=== PATIENT | female | born 1960 | race Caucasian/White ===

== ENCOUNTER 2021-12-12 02:54 | Inpatient (IN) ==
[2021-12-12] MEDS ORDERED: ATARAX TAB 25 MG PO ONE ×2 (03:51→04:13)
--- NOTE | 2021-12-12 03:51 | DR.EXTPAIN ---
HPI Time seen Time Seen by Provider: 12/12/21 03:34 Complaint/Symptoms Chief Complaint Doctor Comments: LESIONS ON TONGUE AND LIPS AND FACE FOR ABOUT 5 HOURS. 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 ROS Review of Systems Constitutional: No Symptoms Reported Eyes: No Symptoms Reported ENTM: No Symptoms Reported and Mouth Pain Respiratoy: No Symptoms Reported Cardiovascular: No Symptoms Reported Gastrointestinal/Abdominal: No Symptoms Reported Genitourinary: No Symptoms Reported Neurological: No Symptoms Reported Musculoskeletal: No Symptoms Reported Integumentary: No Symptoms Reported Hematologic/Lymphatic: No Symptoms Reported Endocrine: No Symptoms Reported Psychiatric: No Symptoms Reported All Other Systems: Reviewed and Negative PE Vital Signs Vitals: Temperature 97.6 F Pulse Rate 69 Respiratory Rate 18 Blood Pressure 181/92 O2 Sat by Pulse Oximetry 97 General Limitations: No Limitations General Appearance: Alert and In No Apparent Distress Head Head Exam: Normal Inspection Eyes Eye exam: Normal Appearance ENT ENT Exam: Normal Exam and Other (RASH ON TONGUE AND LIPS AND R SIDE OFACE AND NECK. APPEARED PETECHIA IN NATURE.) Neck Neck Exam: Normal Inspection Chest Chest Inspection: Normal Inspection Respiratory Respiratory Exam: Normal Lung Sounds Bilat Cardiovascular Cardiovascular Exam: Regular Rate and Normal Rhythm Abdominal Exam Abdominal Exam: Normal Inspection, Normal Bowel Sounds and Soft Extremities Extremities Exam: Normal Inspection Back Back Exam: Normal Inspection Neurological Neurological Exam: Alert, Oriented X3 and CN II-XII Intact Psychiatric Psychiatric Exam: Normal Affect and Normal Mood Skin Skin Exam: Warm, Dry, Intact and Normal Color MDM Differential Diagnosis Differential Diagnosis: Other (CONTACT DERMATITIS. PETECHIAL RASH ON LIPS AND TONGUE.) COURSE Treatment Treatment: THIS PATIENT REMAINED STABLE DURING THE ER EVALUATION. WAS FOUND TO HAVE PLATELETS OF ONE ONLAB EVALUATION. WAS ADVISED THAT SHE NEEDED TO HAVE PLATELET TRANSFUSIONS AND NEEDED TO BE PUT INTO HOSPITAL TO AWAIT ARRIVAL OF PLATELETS. SPOKE TO DR CUMMINGS AT 0630 AM AND HE WILL ACCEPT THE PATIENT TO OBSEVATION [facility] FURTHER WORKUP AND TREATMENT OF THROMBOCYTOPENIA. ROR Labs Reviewed Laboratory Results Reviewed?: Yes (PLATELETS OF 1x10^3/uL) Result Diagrams: 12/18/21 05:05 12/18/21 05:05 Laboratory: WBC 5.2 X10^3/uL (3.6-10.0) 12/12/21 04:12 RBC 4.68 X10^6/uL (3.5-5.4) 12/12/21 04:12 Hgb 12.8 g/dL (12.0-16.0) 12/12/21 04:12 Hct 37.8 % (36.0-47.0) 12/12/21 04:12 MCV 80.9 fL (80.0-100.0) 12/12/21 04:12 MCH 27.4 pg (27.0-34.0) 12/12/21 04:12 MCHC 33.9 g/dL (33.0-35.0) 12/12/21 04:12 RDW 13.1 % (11.6-16.5) 12/12/21 04:12 Plt Count 1 X10^3/uL (150.0-450.0) L* 12/12/21 04:12 MPV 12.9 fL (7.4-11.0) H 12/12/21 04:12 Neut % (Auto) 56.7 % (42.0-75.0) 12/12/21 04:12 Lymph % (Auto) 32.9 % (21.0-51.0) 12/12/21 04:12 [place] % (Auto) 6.1 % (0.0-13.0) 12/12/21 04:12 Eos % (Auto) 3.6 % (0.9-2.9) H 12/12/21 04:12 Baso % (Auto) 0.7 % (0.2-1.0) 12/12/21 04:12 Neut # (Auto) 2.9 x10^3/uL (2.2-4.8) 12/12/21 04:12 Lymph # (Auto) 1.7 X10^3/uL (1.3-2.9) 12/12/21 04:12 [place] # (Auto) 0.3 x10^3/uL (0.3-0.8) 12/12/21 04:12 Eos # (Auto) 0.2 x10^3/uL (0.0-0.2) 12/12/21 04:12 Baso # (Auto) 0.0 X10^3/uL (0.0-0.1) 12/12/21 04:12 Absolute Nucleated RBC 0.1 /100WBC 12/12/21 04:12 Smear Path Review See note 12/12/21 04:12 ESR 8 MM/HOUR (0-20) 12/12/21 04:12 PT 12.7 SECONDS (11.8-14.3) 12/12/21 04:12 INR Target Range - 12/12/21 04:12 INR 1.00 (0.8-1.3) 12/12/21 04:12 APTT 28.5 SECONDS (22.9-36.5) 12/12/21 04:12 PTT Comment - 12/12/21 04:12 D-Dimer 0.74 ug/ml (0.0-0.57) H* 12/12/21 04:12 Sodium 141 mmol/L (136-145) 12/12/21 04:12 Corrected Sodium 142 mmol/L (136-145) 12/12/21 04:12 Potassium 3.7 mmol/L (3.5-5.1) 12/12/21 04:12 Chloride 103 mmol/L (98-107) 12/12/21 04:12 Carbon Dioxide 27.7 mmol/L (21-32) 12/12/21 04:12 BUN 12 mg/dL (7-18) 12/12/21 04:12 Creatinine 0.67 mg/dL (0.55-1.02) 12/12/21 04:12 Est GFR (MDRD) Af Amer > 60 (>60) 12/12/21 04:12 Est GFR (MDRD) Non-Af > 60 (>60) 12/12/21 04:12 Glucose 131 mg/dL (65-99) H 12/12/21 04:12 Calcium 8.7 mg/dL (8.5-10.1) 12/12/21 04:12 Corrected Calcium TNP 12/12/21 04:12 Total Bilirubin 0.40 mg/dL (0.2-1.0) 12/12/21 04:12 AST 29 Units/L (15-37) 12/12/21 04:12 ALT 40 Units/L (12-78) 12/12/21 04:12 Alkaline Phosphatase 79 Units/L (46-116) 12/12/21 04:12 C-Reactive Protein 1.60 mg/L (0-3.0) 12/12/21 04:12 B-Natriuretic Peptide 61.3 pg/mL (0-79) 12/12/21 04:12 Total Protein 7.7 g/dL (6.4-8.2) 12/12/21 04:12 Albumin 4.2 g/dL (3.4-5.0) 12/12/21 04:12 Globulin 3.5 g/dL (2.5-4.5) 12/12/21 04:12 Albumin/Globulin Ratio 1.2 Ratio (1.1-2.1) 12/12/21 04:12 Specimen Type Clean catch urine 12/12/21 04:00 Urine Color Red (YELLOW) 12/12/21 04:00 Urine Appearance Cloudy (CLEAR) 12/12/21 04:00 Urine pH Cancelled 12/12/21 04:00 Ur Specific [place] Cancelled 12/12/21 04:00 Urine Protein Cancelled 12/12/21 04:00 Urine Glucose (UA) Cancelled 12/12/21 04:00 Urine Ketones Cancelled 12/12/21 04:00 Urine Occult Blood Cancelled 12/12/21 04:00 Urine Nitrite Cancelled 12/12/21 04:00 Urine Bilirubin Cancelled 12/12/21 04:00 Urine Urobilinogen Cancelled 12/12/21 04:00 Ur Leukocyte Esterase Cancelled 12/12/21 04:00 Urine RBC Tntc /HPF (0-3) A 12/12/21 04:00 Urine WBC None seen /HPF (0-5) 12/12/21 04:00 Ur Squamous Epith Cells Negative /HPF (NEGATIVE) 12/12/21 04:00 Urine Bacteria Negative /HPF (NEGATIVE) 12/12/21 04:00 Ur Culture Indicated? No/not indicated 12/12/21 04:00 SARS CoV-2 RNA Rapid BRITTANY Positive (NEGATIVE) A 12/12/21 06:07 Blood Type B POSITIVE 12/12/21 06:10 Opioid Opioid Risk Tool Total: 0 Total Score Risk Category: Low Risk Copyright: Zane BOWERS predicting aberrant behaviors Diagnosis Discharge Problem: Thrombocytopenia Instructions Instructions: COVID-19 Frequently Asked Questions Prone Position Therapy Type 2 Diabetes Mellitus, Self-Care, Adult 10 Things You Can Do to Manage Your COVID-19 Symptoms at Home - [facility] (05/07/2020) Hypertension, Adult, [id number] Essential Thrombocythemia Thrombocytopenia, [id number] Forms: Precautions for COVID19 [facility] Social Distancing
[2021-12-12 04:22] LABS: APPEARANCE,URINE CLOUDY (CLEAR); BACTERIA,URINE NEGATIVE /HPF (NEGATIVE); COLOR,URINE RED (YELLOW); RBC,URINE TNTC /HPF (0-3); SQUAMOUS EPITHELIAL CELL,UR NEGATIVE /HPF (NEGATIVE)
[2021-12-12 04:26] LABS: EOSINOPHILS # (AUTO) 0.2 x10^3/uL (0.0-0.2); MONOCYTES # (AUTO) 0.3 x10^3/uL (0.3-0.8)
[2021-12-12 04:31] LABS: LYMPHOCYTES # (AUTO) 1.7 X10^3/uL (1.3-2.9)
[2021-12-12 04:34] LABS: ALANINE AMINOTRANSFERASE 40 Units/L (12-78); ALBUMIN 4.2 g/dL (3.4-5.0); ALKALINE PHOSPHATASE 79 Units/L (46-116); ASPARTATE AMINO TRANSFERASE 29 Units/L (15-37); BLOOD UREA NITROGEN 12 mg/dL (7-18); CALCIUM 8.7 mg/dL (8.5-10.1); CARBON DIOXIDE 27.7 mmol/L (21-32); CHLORIDE 103 mmol/L (98-107); COR NA(FOR HYPERGLY) 142 mmol/L (136-145); CREATININE 0.67 mg/dL (0.55-1.02); SODIUM 141 mmol/L (136-145); TOTAL PROTEIN 7.7 g/dL (6.4-8.2); eGFR NON BLACK RACES > 60 (>60)
[2021-12-12 04:49] LABS: NEUTROPHILS # (AUTO) 2.9 x10^3/uL (2.2-4.8); WHITE BLOOD COUNT 5.2 X10^3/uL (3.6-10.0)
[2021-12-12 04:52] LABS: BASOPHILS % (AUTO) 0.7 % (0.2-1.0); EOSINOPHILS % (AUTO) 3.6 % (0.9-2.9); HEMATOCRIT 37.8 % (36.0-47.0); HEMOGLOBIN 12.8 g/dL (12.0-16.0); LYMPHOCYTES % (AUTO) 32.9 % (21.0-51.0); MEAN CORPUSCULAR HEMOGLOBIN 27.4 pg (27.0-34.0); MEAN CORPUSCULAR HGB CONC 33.9 g/dL (33.0-35.0); MEAN CORPUSCULAR VOLUME 80.9 fL (80.0-100.0); MEAN PLATELET VOLUME 12.9 fL (7.4-11.0); MONOCYTES % (AUTO) 6.1 % (0.0-13.0); NEUTROPHILS % (AUTO) 56.7 % (42.0-75.0); RED BLOOD COUNT 4.68 X10^6/uL (3.5-5.4); RED CELL DISTRIBUTION WIDTH 13.1 % (11.6-16.5)
[2021-12-12 04:58] VITALS: BMI 29.0
--- NOTE | 2021-12-12 05:14 | CT ---
PROCEDURE: CT Abdomen and Pelvis without Contrast .HISTORY: Hematuria and dysuria. Evaluate for urinary tract stones.TECHNIQUE: Axial images were performed through the abdomen and pelvis without the administration of IV contrast with multiplanar reformations . Oral contrast was not administered . Dose reduction techniques including Automated Exposure Control (AEC) and adjustment of mA and kV were utilized .COMPARISON: None .TECHNICAL QUALITY: Satisfactory .FINDINGS:Some mild patchy consolidation right lower lobe could be related to COVID-19 pneumonia.Liver, spleen, adrenals, and pancreas show no significant abnormality.Kidneys show no urinary tract stones or obstructive uropathy.Normal biliary tract.No ascites or pneumoperitoneum.Normal aorta.No lymphadenopathy.No bowel obstruction or inflammation and normal appendix.Pelvis shows no masses or free fluid with previous hysterectomy. Normal urinary bladder.No acute bony abnormality.IMPRESSION:1. No urinary tract stones or obstructive uropathy.2. No other significant abnormality involving abdomen or pelvis.3. Possible COVID pneumonia right lung base.Electronically signed by: Dave Alonso (Dec 12, 2021 05:13:08)
[2021-12-12] MEDS: SOLU-Medrol 40 MG VIAL IVP SCH ×3 (11:00→21:33)
[2021-12-12] MEDS: LEVAQUIN PREMIX IV 500 MG 500 MG/100 ML BAG IV SCH (11:00)
[2021-12-12] MEDS ORDERED: PHARMACY CONSULT - IVERMECTIN XX SCH (11:00)
[2021-12-12] MEDS ORDERED: BROVANA IN SCH (11:00)
--- NOTE | 2021-12-12 11:02 | DR.H&P ---
H&P - History & Physical for Day of: H&P Date: 12/12/21 - Chief Complaint Chief Complaint: SORES TO MOUTH AND TONGUE, RASH TO LIPS/FACE/NECK, COVID-19, BLOOD IN URINE - History of Present Illness History of Present Illness: IS A 61 YEAR OLD PATIENT OF [facility]. SHE PRESENTED TO THE ER WITH COMPLAINTS OF LESIONS TO THE MOUTH AND TONGUE. SHE ALSO REPORTS BLOOD IN URINE. SYMPTOMS STARTED ONE DAY PRIOR. PATIENT REPORTS BEING DIAGNOSED WITH COVID-19 ABOUT 10 DAYS PRIOR TO ARRIVAL. SHE HAS TAKEN A Z-PAC AND COUGH MEDICATIONS. EXAMINATION REVEALED A PETECHIAL RASH TO THE LIPS AND RIGHT SIDE OF FACE AND NECK. SHE DOES HAVE SEVERAL ULCERS TO THE MOUTH AND TONGUE. HER PMH INCLUDES HTN, GERD, DM II, DEPRESSION, AND HYSTERECTOMY. ON ARRIVAL TO THE ER, HER VITALS WERE 97.6-69-18-97%-181/92. LABS WERE OBTAINED. WBC 5.2, HGB 12.8, HCT 37.8, D-DIMER 0.74, SODIUM 141, POTASSIUM 3.7, BUN 12, CREATININE 0.67, GLUCOSE 131, CALCIUM 8.7, CRP 1.60, BNP 61.3, TOTAL PROTEIN 7.7, ALBUMIN 4.2. HER PLATELETS WERE NOTED TO BE CRITCALLY LOW AT 1.0. URINALYSIS REVEALED TNTC RBC. COVID-19 POSITIVE. AN ABDOMEN/PELVIS CT WAS OBTAINED AND REVEALED: 1. No urinary tract stones or obstructive uropathy. 2. No other significant abnormality involving abdomen or pelvis. 3. Possible COVID pneumonia right lung base. SHE WAS ADMITTED TO THE HOSPITAL FOR FURTHER EVALUATION AND TREATMENT OF PNEUMONIA DUE TO COVID-19, IDIOPATHIC THROMBOCYTOPENIA PURPURA, HEMATURIA. SHE WAS STARTED ON NORMAL SALINE AT 50 ML/HR, LEVAQUIN 500MG IV DAILY, SOLU-MEDROL 80MG IV Q8H, VITAMIN C 1G PO Q6H, LUVOX 50MG PO BID, IVERMECTIN DAILY, VITAMIN A DAILY, AND ZINC SULFATE 220MG PO BID. WE WILL TRANSFUSE 2 SUPERPACKS OF PLATELETS. OTHERWISE, WE PLAN TO FOLLOW UP WITH AM LABS AND CONTINUE TO MONITOR. TIME SPENT ON CLINICAL ASSESSMENT, REVIEWING LABS AND IMAGING, DECISION MAKING, AND DOCUMENTATION GREATER THAN 75 MINUTES. - Past Medical History Past Medical History: Diabetes, Hypertension - Past Surgical History Surgical History: Hysterectomy - Family History Family Medical History: Diabetes Mellitus, Heart Failure - Social History Does patient currently use any type of tobacco product: No Alcohol Use: None - Medications Home Medications: cefaclor [From Ceclor] Allergy (Verified 12/12/21 04:40) - Review of Systems Constitutional: Weakness Eyes: No Symptoms Reported ENT: See HPI, Other (LESIONS TO MOUTH AND TONGUE) Respiratory: No Symptoms Reported Cardiovascular: No Symptoms Reported Gastrointestinal: No Symptoms Reported Genitourinary: No Symptoms Reported Musculoskeletal: No Symptoms Reported Skin: See HPI, Rash (RASH TO LIPS, FACE, NECK) Neurological: Weakness - Physical Exam Vital Signs: Temperature 97.9 F Pulse Rate [Radial] 69 Pulse Rate 69 Respiratory Rate 21 Blood Pressure [Left Arm] 151/83 Blood Pressure 181/92 O2 Sat by Pulse Oximetry 99 Oriented: Normal Eyes: Normal Ear: Normal Nose: Normal Throat: Other (LESIONS TO MOUTH AND TONGUE) Respiratory: Diminished Throughout Cardiovascular: Normal : Normal Auscultation: Bowel Sounds: Normal Palpation: Normal Tenderness: Normal Skin: Rash (PETECHIAL RASH TO LIPS, FACE, NECK ) Musculoskeletal: Normal Psychiatric: Normal Mood Description: Calm Affect: Normal Speech Pattern: Clear - Assessment/Plan (1) Acute ITP Status: Acute Plan: ADMIT, TRANSFUSE PLATELETS, IV FLUIDS, IV ANTIBITOTICS, IV STEROIDS, IMMUNE SUPPLEMENTS, RESUME HOME MEDS (2) Pneumonia due to COVID-19 virus Status: Acute - Allergies Allergies/Adverse Reactions: Allergies Allergy/AdvReac Type Severity Reaction Status Date / Time cefaclor [From Ceclor] Allergy Verified 12/12/21 04:40
[2021-12-12] MEDS: NS 1,000 ML IV 1,000 ML IV SCH (12:00)
[2021-12-12] MEDS: ZINC SULFATE PO SCH ×2 (12:00→21:33)
[2021-12-12] MEDS: LUVOX PO SCH ×2 (12:00→21:32)
[2021-12-12] MEDS: VITAMIN A PO SCH (12:00)
[2021-12-12] MEDS: VITAMIN C PO SCH ×3 (12:00→22:30)
[2021-12-12] MEDS: IVERMECTIN PO SCH (13:00)
[2021-12-12] MEDS ORDERED: NS 250 ML IV 250 ML IV ONE (14:05)
[2021-12-12] MEDS ORDERED: PULMICORT NEB TX 0.5 MG NEB ONE (19:37)
[2021-12-12] MEDS ORDERED: BROVANA ONE (19:37)
[2021-12-12] MEDS: SNACK - Diabetic Appropriate PO SCH (20:09)
[2021-12-12] MEDS: PULMICORT NEB TX 0.5 MG NEB SCH (20:20)
[2021-12-12] MEDS: BROVANA IN SCH (20:20)
[2021-12-12] MEDS: NovoLIN R (or HumuLIN R) SUBCUT PRN (21:33)
[2021-12-13] MEDS: NS 1,000 ML IV 1,000 ML IV SCH ×2 (01:00→16:52)
[2021-12-13] MEDS: VITAMIN C PO SCH ×4 (05:32→22:36)
[2021-12-13] MEDS: SOLU-Medrol 40 MG VIAL IVP SCH ×3 (05:32→21:17)
[2021-12-13 05:39] LABS: BASOPHILS % (AUTO) 0.3 % (0.2-1.0); HEMATOCRIT 33.2 % (36.0-47.0); HEMOGLOBIN 11.6 g/dL (12.0-16.0); LYMPHOCYTES # (AUTO) 0.4 X10^3/uL (1.3-2.9); LYMPHOCYTES % (AUTO) 3.8 % (21.0-51.0); MEAN CORPUSCULAR HEMOGLOBIN 28.3 pg (27.0-34.0); MEAN CORPUSCULAR HGB CONC 34.9 g/dL (33.0-35.0); MEAN CORPUSCULAR VOLUME 81.1 fL (80.0-100.0); MEAN PLATELET VOLUME 11.6 fL (7.4-11.0); MONOCYTES # (AUTO) 0.1 x10^3/uL (0.3-0.8); MONOCYTES % (AUTO) 1.2 % (0.0-13.0); NEUTROPHILS % (AUTO) 94.7 % (42.0-75.0); RED BLOOD COUNT 4.09 X10^6/uL (3.5-5.4); RED CELL DISTRIBUTION WIDTH 13.3 % (11.6-16.5); WHITE BLOOD COUNT 10.6 X10^3/uL (3.6-10.0)
[2021-12-13 05:54] LABS: ALANINE AMINOTRANSFERASE 32 Units/L (12-78); ALBUMIN 3.6 g/dL (3.4-5.0); ALKALINE PHOSPHATASE 65 Units/L (46-116); ASPARTATE AMINO TRANSFERASE 22 Units/L (15-37); BLOOD UREA NITROGEN 13 mg/dL (7-18); CALCIUM 8.5 mg/dL (8.5-10.1); CARBON DIOXIDE 24.9 mmol/L (21-32); CHLORIDE 107 mmol/L (98-107); COR NA(FOR HYPERGLY) 145 mmol/L (136-145); CREATININE 0.73 mg/dL (0.55-1.02); SODIUM 142 mmol/L (136-145); TOTAL PROTEIN 7.1 g/dL (6.4-8.2); eGFR NON BLACK RACES > 60 (>60)
[2021-12-13] MEDS: NovoLIN R (or HumuLIN R) SUBCUT PRN ×2 (06:21→21:36)
[2021-12-13 06:51] LABS: BAND NEUTROPHILS % 4 % (0-10); PLATELET MORPHOLOGY COMMENT NORMAL (NORMAL)
--- NOTE | 2021-12-13 07:23 | RAD ---
HISTORYSOB thrombocytopeniaSTUDYAP chestCOMPARISONNoneFINDINGSHeart size normal with clear lungs and pleural spaces. There is no mediastinal or hilar lesion.IMPRESSIONNo acute findings. The suspect right lower lobe infiltrate described on recent abdomen CT is not identified.Electronically signed by: DAHLIA PISANO (Dec 13, 2021 07:22:02)
[2021-12-13] MEDS: PULMICORT NEB TX 0.5 MG NEB SCH ×2 (08:54→20:11)
[2021-12-13] MEDS: BROVANA IN SCH ×2 (08:54→20:11)
[2021-12-13] MEDS: LUVOX PO SCH ×2 (08:58→21:17)
[2021-12-13] MEDS: LEVAQUIN PREMIX IV 500 MG 500 MG/100 ML BAG IV SCH (08:58)
[2021-12-13] MEDS: ZINC SULFATE PO SCH ×2 (08:58→21:17)
[2021-12-13] MEDS: VITAMIN A PO SCH (08:58)
[2021-12-13] MEDS: IVERMECTIN PO SCH (09:55)
[2021-12-13] MEDS ORDERED: XANAX PO ONE (16:45)
[2021-12-13] MEDS ORDERED: XANAX ONE (17:16)
[2021-12-13] MEDS ORDERED: NS 250 ML IV 250 ML IV ONE (19:38)
[2021-12-13] MEDS: SNACK - Diabetic Appropriate PO SCH (20:41)
[2021-12-14 05:33] LABS: BASOPHILS % (AUTO) 0.2 % (0.2-1.0); HEMATOCRIT 31.3 % (36.0-47.0); HEMOGLOBIN 10.8 g/dL (12.0-16.0); LYMPHOCYTES # (AUTO) 0.5 X10^3/uL (1.3-2.9); LYMPHOCYTES % (AUTO) 6.7 % (21.0-51.0); MEAN CORPUSCULAR HGB CONC 34.5 g/dL (33.0-35.0); MEAN CORPUSCULAR VOLUME 81.2 fL (80.0-100.0); MEAN PLATELET VOLUME 11.4 fL (7.4-11.0); MONOCYTES # (AUTO) 0.2 x10^3/uL (0.3-0.8); MONOCYTES % (AUTO) 2.8 % (0.0-13.0); NEUTROPHILS # (AUTO) 7.3 x10^3/uL (2.2-4.8); NEUTROPHILS % (AUTO) 90.3 % (42.0-75.0); RED BLOOD COUNT 3.86 X10^6/uL (3.5-5.4); RED CELL DISTRIBUTION WIDTH 13.6 % (11.6-16.5)
[2021-12-14 05:48] LABS: ALANINE AMINOTRANSFERASE 29 Units/L (12-78); ALBUMIN 3.5 g/dL (3.4-5.0); ALKALINE PHOSPHATASE 60 Units/L (46-116); ASPARTATE AMINO TRANSFERASE 17 Units/L (15-37); BLOOD UREA NITROGEN 18 mg/dL (7-18); CALCIUM 8.1 mg/dL (8.5-10.1); CARBON DIOXIDE 24.5 mmol/L (21-32); CHLORIDE 110 mmol/L (98-107); COR NA(FOR HYPERGLY) 145 mmol/L (136-145); CREATININE 0.74 mg/dL (0.55-1.02); SODIUM 142 mmol/L (136-145); TOTAL PROTEIN 6.7 g/dL (6.4-8.2); eGFR NON BLACK RACES > 60 (>60)
--- NOTE | 2021-12-14 06:08 | RAD ---
HISTORYSOBSTUDYCHEST, 1 VIEWCOMPARISONOne day prior.TECHNIQUEAP view of the chestFINDINGSThe cardiac and mediastinal contours are within normal limits. The lungs are clear without focal consolidation or segmental collapse. No pleural effusion or pneumothorax.IMPRESSIONNo acute pulmonary process radiographically.Electronically signed by: Emmett Sky (Dec 14, 2021 06:07:08)
[2021-12-14 06:16] LABS: PLATELET MORPHOLOGY COMMENT NORMAL (NORMAL)
[2021-12-14] MEDS: NovoLIN R (or HumuLIN R) SUBCUT PRN ×4 (06:20→20:10)
[2021-12-14] MEDS: VITAMIN C PO SCH ×4 (06:21→22:00)
[2021-12-14] MEDS: NS 1,000 ML IV 1,000 ML IV SCH ×2 (06:21→19:49)
[2021-12-14] MEDS: SOLU-Medrol 40 MG VIAL IVP SCH ×3 (06:21→21:49)
[2021-12-14] MEDS ORDERED: ZOLOFT PO SCH (09:00)
[2021-12-14] MEDS: PULMICORT NEB TX 0.5 MG NEB SCH ×2 (09:07→21:15)
[2021-12-14] MEDS: BROVANA IN SCH ×2 (09:07→21:15)
[2021-12-14] MEDS: LEVAQUIN PREMIX IV 500 MG 500 MG/100 ML BAG IV SCH (09:50)
[2021-12-14] MEDS: IVERMECTIN PO SCH (09:50)
[2021-12-14] MEDS: VITAMIN A PO SCH (09:56)
[2021-12-14] MEDS: ZINC SULFATE PO SCH ×2 (09:56→20:10)
[2021-12-14] MEDS: LUVOX PO SCH ×2 (09:56→20:10)
[2021-12-14] MEDS: LOPRESSOR TAB 25 MG PO SCH (09:56)
--- NOTE | 2021-12-14 10:31 | PCM.PROG ---
Progress Note - Progress Note for Day of Date of Exam: 12/13/21 - Subjective Subjective: WAS ADMITTED ON 12/12 FOR TREATMENT OF PNEUMONIA DUE TO COVID-19 AND ACUTE ITP. SHE HAS A PMH OF DM II, HTN, DEPRESSION, AND HYPERLIPIDEMIA. SHE HAS RECEIVED TWO SUPERPACKS OF PLATELETS SINCE ADMISSION. TODAY, SHE IS ALERT AND ORIENTED, LYING IN BED ON MORNING ROUNDS. SHE REPORTS GENERALIZED WEAKNESS, SHORTNESS OF BREATH AT TIMES, AND CONTINUES TO HAVE LESIONS IN MOUTH. RASH APPEARS TO BE SLIGHTLY BETTER TODAY. ON EXAMINATION, HEART IS REGULAR IN RATE AND RHYTHM. BILATERAL LUNGS NOTED WITH DIMINISHED LUNG SOUNDS THROUGHOUT. ABDOMEN IS ROUND, SOFT, AND NON-TENDER WITH NORMAL BOWEL SOUNDS NOTED IN ALL QUADRNATS. HER VITALS THIS MORNING ARE: 98.2-67-16-90%-127/70. SHE HAS BEEN ON ROOM AIR. LABS WERE OBTAINED. ABNORMAL LAB VALUES INCLUDE THE FOLLOWING: WBC 10.6, HGB 11.6, HCT 33.2, PLT COUNT 2, GLUCOSE 224, CRP 6.10. CHEST XRAY OBTAINED AND REVEALED: No acute findings. The suspect right lower lobe infiltrate described on recent abdomen CT is not identified. SHE IS CURRENTLY RECEIVING NORMAL SALINE AT 50 ML/HR, LEVAQUIN 500MG IV DAILY, SOLU-MEDROL 80MG IV Q8H, VITAMIN C 1G PO Q6H, LUVOX 50MG PO BID, IVERMECTIN DAILY, VITAMIN A DAILY, AND ZINC SULFATE 220MG PO BID. WE WILL TRANSFUSE ADDITIONAL SUPERPACKS OF PLATELETS TODAY. OTHERWISE, WE PLAN TO FOLLOW UP WITH AM LABS AND CONTINUE TO MONITOR. TIME SPENT ON CLINICAL ASSESSMENT, REVIEWING LABS AND IMAGING, DECISION MAKING, AND DOCUMENTATION GREATER THAN 45 MINUTES. - Past Medical Family Social History Past Med/Fam/Surg Hx: No changes since H&P Allergies: Allergies cefaclor [From Ceclor] Allergy (Verified 12/12/21 04:40) - Review of Systems ROS: No change since H&P - Vital Signs and I&O's Vital Signs: Temperature 97.9 F Pulse Rate [Radial] 70 Pulse Rate 83 Respiratory Rate 18 Blood Pressure [Left Arm] 135/71 Blood Pressure 120/65 O2 Sat by Pulse Oximetry 93 Intake and Output: Intake & Output 12/11/21 12/12/21 12/13/21 12/14/21 11:59 11:59 11:59 11:59 Intake Total 2136 Balance 2136 - Physical Exam Oriented: Normal Eyes: Normal Ear: Normal Nose: Normal Throat: Other (LESIONS TO MOUTH AND TONGUE) Respiratory: Generalized, Diminished Cardiovascular: Normal : Normal Auscultation: Bowel Sounds: Normal Palpation: Normal Tenderness: Normal Skin: Rash (PETECHIAL RASH TO LIPS, FACE, NECK ) Musculoskeletal: Normal Psychiatric: Normal Mood Description: Calm Affect: Normal Speech Pattern: Clear, Appropriate - Laboratory and Diagnostics Result Diagrams: 12/14/21 04:39 12/14/21 04:39 Labs: Laboratory WBC 8.0 X10^3/uL (3.6-10.0) 12/14/21 04:39 RBC 3.86 X10^6/uL (3.5-5.4) 12/14/21 04:39 Hgb 10.8 g/dL (12.0-16.0) L 12/14/21 04:39 Hct 31.3 % (36.0-47.0) L 12/14/21 04:39 MCV 81.2 fL (80.0-100.0) 12/14/21 04:39 MCH 28.0 pg (27.0-34.0) 12/14/21 04:39 MCHC 34.5 g/dL (33.0-35.0) 12/14/21 04:39 RDW 13.6 % (11.6-16.5) 12/14/21 04:39 Plt Count 2 X10^3/uL (150.0-450.0) L* 12/14/21 04:39 Plt Count Comment Decreased (ADEQUATE) A 12/14/21 04:39 MPV 11.4 fL (7.4-11.0) H 12/14/21 04:39 Neut % (Auto) 90.3 % (42.0-75.0) H 12/14/21 04:39 Lymph % (Auto) 6.7 % (21.0-51.0) L 12/14/21 04:39 [place] % (Auto) 2.8 % (0.0-13.0) 12/14/21 04:39 Eos % (Auto) 0.0 % (0.9-2.9) L 12/14/21 04:39 Baso % (Auto) 0.2 % (0.2-1.0) 12/14/21 04:39 Neut # (Auto) 7.3 x10^3/uL (2.2-4.8) H 12/14/21 04:39 Lymph # (Auto) 0.5 X10^3/uL (1.3-2.9) L 12/14/21 04:39 [place] # (Auto) 0.2 x10^3/uL (0.3-0.8) L 12/14/21 04:39 Eos # (Auto) 0.0 x10^3/uL (0.0-0.2) 12/14/21 04:39 Baso # (Auto) 0.0 X10^3/uL (0.0-0.1) 12/14/21 04:39 Absolute Nucleated RBC 0.0 /100WBC 12/14/21 04:39 Total Counted 100 12/14/21 04:39 Neutrophils % (Manual) 88 % (39-76) H 12/14/21 04:39 Band Neutrophils % 4 % (0-10) 12/13/21 05:05 Lymphocytes % (Manual) 10 % (13-43) L 12/14/21 04:39 Monocytes % (Manual) 2 % (4-9) L 12/14/21 04:39 Plt Morphology Comment Normal (NORMAL) 12/14/21 04:39 RBC Morphology Normal (NORMAL) 12/14/21 04:39 ESR 8 MM/HOUR (0-20) 12/12/21 04:12 PT 12.7 SECONDS (11.8-14.3) 12/12/21 04:12 INR Target Range - 12/12/21 04:12 INR 1.00 (0.8-1.3) 12/12/21 04:12 APTT 28.5 SECONDS (22.9-36.5) 12/12/21 04:12 PTT Comment - 12/12/21 04:12 D-Dimer 0.74 ug/ml (0.0-0.57) H* 12/12/21 04:12 Sodium 142 mmol/L (136-145) 12/14/21 04:39 Corrected Sodium 145 mmol/L (136-145) 12/14/21 04:39 Potassium 3.7 mmol/L (3.5-5.1) 12/14/21 04:39 Chloride 110 mmol/L (98-107) H 12/14/21 04:39 Carbon Dioxide 24.5 mmol/L (21-32) 12/14/21 04:39 BUN 18 mg/dL (7-18) 12/14/21 04:39 Creatinine 0.74 mg/dL (0.55-1.02) 12/14/21 04:39 Est GFR (MDRD) Af Amer > 60 (>60) 12/14/21 04:39 Est GFR (MDRD) Non-Af > 60 (>60) 12/14/21 04:39 Glucose 211 mg/dL (65-99) H 12/14/21 04:39 POC Glucose (mg/dL) 191 mg/dL (65-99) H 12/14/21 06:05 Calcium 8.1 mg/dL (8.5-10.1) L 12/14/21 04:39 Corrected Calcium TNP 12/14/21 04:39 Total Bilirubin 0.30 mg/dL (0.2-1.0) 12/14/21 04:39 AST 17 Units/L (15-37) 12/14/21 04:39 ALT 29 Units/L (12-78) 12/14/21 04:39 Alkaline Phosphatase 60 Units/L (46-116) 12/14/21 04:39 C-Reactive Protein 2.80 mg/L (0-3.0) 12/14/21 04:39 B-Natriuretic Peptide 251 pg/mL (0-79) H 12/14/21 04:39 Total Protein 6.7 g/dL (6.4-8.2) 12/14/21 04:39 Albumin 3.5 g/dL (3.4-5.0) 12/14/21 04:39 Globulin 3.2 g/dL (2.5-4.5) 12/14/21 04:39 Albumin/Globulin Ratio 1.1 Ratio (1.1-2.1) 12/14/21 04:39 Specimen Type Clean catch urine 12/12/21 04:00 Urine Color Red (YELLOW) 12/12/21 04:00 Urine Appearance Cloudy (CLEAR) 12/12/21 04:00 Urine pH Cancelled 12/12/21 04:00 Ur Specific [place] Cancelled 12/12/21 04:00 Urine Protein Cancelled 12/12/21 04:00 Urine Glucose (UA) Cancelled 12/12/21 04:00 Urine Ketones Cancelled 12/12/21 04:00 Urine Occult Blood Cancelled 12/12/21 04:00 Urine Nitrite Cancelled 12/12/21 04:00 Urine Bilirubin Cancelled 12/12/21 04:00 Urine Urobilinogen Cancelled 12/12/21 04:00 Ur Leukocyte Esterase Cancelled 12/12/21 04:00 Urine RBC Tntc /HPF (0-3) A 12/12/21 04:00 Urine WBC None seen /HPF (0-5) 12/12/21 04:00 Ur Squamous Epith Cells Negative /HPF (NEGATIVE) 12/12/21 04:00 Urine Bacteria Negative /HPF (NEGATIVE) 12/12/21 04:00 Ur Culture Indicated? No/not indicated 12/12/21 04:00 SARS CoV-2 RNA Rapid BRITTANY Positive (NEGATIVE) A 12/12/21 06:07 Blood Type B POSITIVE 12/12/21 06:10 - Plan (1) Acute ITP Status: Acute Plan: TRANSFUSE PLATELETS, IV FLUIDS, IV ANTIBITOTICS, IV STEROIDS, IMMUNE SUPP LEMENTS, RESUME HOME MEDS (2) Pneumonia due to COVID-19 virus Status: Acute
[2021-12-14] MEDS: SNACK - Diabetic Appropriate PO SCH (19:49)
[2021-12-14] MEDS: XANAX PO PRN (21:49)
[2021-12-15] MEDS: SOLU-Medrol 40 MG VIAL IVP SCH ×3 (05:07→21:00)
[2021-12-15] MEDS: NovoLIN R (or HumuLIN R) SUBCUT PRN ×4 (05:07→20:25)
[2021-12-15] MEDS: VITAMIN C PO SCH ×4 (05:07→21:59)
[2021-12-15 05:20] LABS: BASOPHILS % (AUTO) 0.1 % (0.2-1.0); EOSINOPHILS % (AUTO) 0.1 % (0.9-2.9); HEMATOCRIT 29.8 % (36.0-47.0); HEMOGLOBIN 10.2 g/dL (12.0-16.0); LYMPHOCYTES # (AUTO) 0.5 X10^3/uL (1.3-2.9); LYMPHOCYTES % (AUTO) 8.2 % (21.0-51.0); MEAN CORPUSCULAR HEMOGLOBIN 28.1 pg (27.0-34.0); MEAN CORPUSCULAR HGB CONC 34.1 g/dL (33.0-35.0); MEAN CORPUSCULAR VOLUME 82.2 fL (80.0-100.0); MEAN PLATELET VOLUME 9.7 fL (7.4-11.0); MONOCYTES # (AUTO) 0.2 x10^3/uL (0.3-0.8); MONOCYTES % (AUTO) 3.4 % (0.0-13.0); NEUTROPHILS # (AUTO) 5.8 x10^3/uL (2.2-4.8); NEUTROPHILS % (AUTO) 88.2 % (42.0-75.0); RED BLOOD COUNT 3.63 X10^6/uL (3.5-5.4); RED CELL DISTRIBUTION WIDTH 13.7 % (11.6-16.5); WHITE BLOOD COUNT 6.6 X10^3/uL (3.6-10.0)
[2021-12-15 05:43] LABS: ALANINE AMINOTRANSFERASE 24 Units/L (12-78); ALBUMIN 3.3 g/dL (3.4-5.0); ALKALINE PHOSPHATASE 53 Units/L (46-116); ASPARTATE AMINO TRANSFERASE 16 Units/L (15-37); BLOOD UREA NITROGEN 19 mg/dL (7-18); CALCIUM 7.6 mg/dL (8.5-10.1); CARBON DIOXIDE 23.5 mmol/L (21-32); CHLORIDE 107 mmol/L (98-107); COR CA(FOR HYPOALB) 8.2 mg/dL (8.5-10.1); COR NA(FOR HYPERGLY) 142 mmol/L (136-145); CREATININE 0.62 mg/dL (0.55-1.02); SODIUM 139 mmol/L (136-145); TOTAL PROTEIN 6.3 g/dL (6.4-8.2); eGFR NON BLACK RACES > 60 (>60)
[2021-12-15 05:52] LABS: PLATELET MORPHOLOGY COMMENT NORMAL (NORMAL)
--- NOTE | 2021-12-15 07:33 | RAD ---
HISTORYSOBSTUDYCHEST, 1 VIEWCOMPARISONOne day prior.TECHNIQUEAP view of the chestFINDINGSThe cardiac and mediastinal contours are within normal limits. The lungs are clear without focal consolidation or segmental collapse. No pleural effusion or pneumothorax.IMPRESSIONNo acute pulmonary process radiographically.Electronically signed by: Emmett Sky (Dec 15, 2021 07:31:47)
[2021-12-15] MEDS: PULMICORT NEB TX 0.5 MG NEB SCH ×2 (08:35→20:52)
[2021-12-15] MEDS: BROVANA IN SCH ×2 (08:35→20:52)
[2021-12-15] MEDS: LEVAQUIN PREMIX IV 500 MG 500 MG/100 ML BAG IV SCH (09:03)
[2021-12-15] MEDS: LOPRESSOR TAB 25 MG PO SCH (09:03)
[2021-12-15] MEDS: IVERMECTIN PO SCH (09:03)
[2021-12-15] MEDS: LUVOX PO SCH ×2 (09:04→20:38)
[2021-12-15] MEDS: VITAMIN A PO SCH (09:04)
[2021-12-15] MEDS: NS 1,000 ML IV 1,000 ML IV SCH ×2 (09:04→21:56)
[2021-12-15] MEDS: ZINC SULFATE PO SCH ×2 (09:04→20:24)
[2021-12-15] MEDS: TRICOR TAB 145 MG PO SCH (09:04)
--- NOTE | 2021-12-15 09:20 | PCM.PROG ---
Progress Note - Progress Note for Day of Date of Exam: 12/14/21 - Subjective Subjective: WAS ADMITTED ON 12/12 FOR TREATMENT OF PNEUMONIA DUE TO COVID-19 AND ACUTE ITP. SHE HAS A PMH OF DM II, HTN, DEPRESSION, AND HYPERLIPIDEMIA. HER PLATELETS IN AUGUST OF 2021 WERE 188. SHE HAS RECEIVED SIX SUPERPACKS OF PLATELETS SINCE ADMISSION. TODAY, SHE IS ALERT AND ORIENTED, LYING IN BED ON MORNING ROUNDS. SHE REPORTS GENERALIZED WEAKNESS, SHORTNESS OF BREATH AT TIMES, AND CONTINUES TO HAVE LESIONS IN MOUTH, ALTHOUGH, THESE HAVE IMPROVED. RASH HAS RESOLVED. SHE IS CURRENTLY ON ROOM AIR. ON EXAMINATION, HEART IS REGULAR IN RATE AND RHYTHM. BILATERAL LUNGS NOTED WITH DIMINISHED LUNG SOUNDS THROUGHOUT. ABDOMEN IS ROUND, SOFT, AND NON-TENDER WITH NORMAL BOWEL SOUNDS NOTED IN ALL QUADRNATS. HER VITALS THIS MORNING ARE: 97.9-84-24-93%-124/60. LABS WERE OBTAINED. ABNORMAL LAB VALUES INCLUDE THE FOLLOWING: HGB 10.8, HCT 31.3, PLT COUNT 2, CHLORIDE 110, GLUCOSE 211, CALCIUM 8.1, BNP 251. CHEST XRAY OBTAINED AND REVEALED: No acute pulmonary process radiographically. SHE IS CURRENTLY RECEIVING NORMAL SALINE AT 50 ML/HR, LEVAQUIN 500MG IV DAILY, SOLU- MEDROL 80MG IV Q8H, VITAMIN C 1G PO Q6H, LUVOX 50MG PO BID, IVERMECTIN DAILY, VITAMIN A DAILY, AND ZINC SULFATE 220MG PO BID. HER HOME MEDICATIONS WERE ALSO RESUMED. WE WILL SEND OUT A HLA PLATELET ANTIBODY SCREEN TODAY. THIS WILL CROSSMATCH PLATELETS SPECIFIC TO PATIENT. WHEN PLATELETS ARE AVAILABLE, WE WILL TRANSFUSE ADDITIONAL PACKS. OTHERWISE, WE WILL CONTINUE WITH CURRENT PLAN TODAY. WE WILL FOLLOW UP WITH AM LABS AND CONTINUE TO MONITOR. TIME SPENT ON CLINICAL ASSESSMENT, REVIEWING LABS AND IMAGING, DECISION MAKING, AND DOCUMENTATION GREATER THAN 45 MINUTES. - Past Medical Family Social History Past Med/Fam/Surg Hx: No changes since H&P Allergies: Allergies cefaclor [From Ceclor] Allergy (Verified 12/12/21 04:40) - Review of Systems ROS: No change since H&P - Vital Signs and I&O's Vital Signs: Temperature 98.1 F Pulse Rate [Radial] 70 Pulse Rate 69 Respiratory Rate 16 Blood Pressure [Left Arm] 135/71 Blood Pressure 122/62 O2 Sat by Pulse Oximetry 94 Intake and Output: Intake & Output 12/12/21 12/13/21 12/14/21 12/15/21 11:59 11:59 11:59 11:59 Intake Total 2136 2956 / 2956 Balance 2136 2956 / 2956 - Physical Exam Oriented: Normal Eyes: Normal Ear: Normal Nose: Normal Throat: Other (LESIONS TO MOUTH AND TONGUE) Respiratory: Generalized, Diminished Cardiovascular: Normal : Normal Auscultation: Bowel Sounds: Normal Palpation: Normal Tenderness: Normal Skin: Normal Musculoskeletal: Normal Psychiatric: Normal Mood Description: Calm Affect: Normal Speech Pattern: Clear, Appropriate - Laboratory and Diagnostics Result Diagrams: 12/15/21 04:39 12/15/21 04:39 Labs: Laboratory WBC 6.6 X10^3/uL (3.6-10.0) 12/15/21 04:39 RBC 3.63 X10^6/uL (3.5-5.4) 12/15/21 04:39 Hgb 10.2 g/dL (12.0-16.0) L 12/15/21 04:39 Hct 29.8 % (36.0-47.0) L 12/15/21 04:39 MCV 82.2 fL (80.0-100.0) 12/15/21 04:39 MCH 28.1 pg (27.0-34.0) 12/15/21 04:39 MCHC 34.1 g/dL (33.0-35.0) 12/15/21 04:39 RDW 13.7 % (11.6-16.5) 12/15/21 04:39 Plt Count 2 X10^3/uL (150.0-450.0) L* 12/15/21 04:39 Plt Count Comment Decreased (ADEQUATE) A 12/15/21 04:39 MPV 9.7 fL (7.4-11.0) 12/15/21 04:39 Neut % (Auto) 88.2 % (42.0-75.0) H 12/15/21 04:39 Lymph % (Auto) 8.2 % (21.0-51.0) L 12/15/21 04:39 [place] % (Auto) 3.4 % (0.0-13.0) 12/15/21 04:39 Eos % (Auto) 0.1 % (0.9-2.9) L 12/15/21 04:39 Baso % (Auto) 0.1 % (0.2-1.0) L 12/15/21 04:39 Neut # (Auto) 5.8 x10^3/uL (2.2-4.8) H 12/15/21 04:39 Lymph # (Auto) 0.5 X10^3/uL (1.3-2.9) L 12/15/21 04:39 [place] # (Auto) 0.2 x10^3/uL (0.3-0.8) L 12/15/21 04:39 Eos # (Auto) 0.0 x10^3/uL (0.0-0.2) 12/15/21 04:39 Baso # (Auto) 0.0 X10^3/uL (0.0-0.1) 12/15/21 04:39 Absolute Nucleated RBC 0.1 /100WBC 12/15/21 04:39 Total Counted 100 12/15/21 04:39 Neutrophils % (Manual) 89 % (39-76) H 12/15/21 04:39 Band Neutrophils % 4 % (0-10) 12/13/21 05:05 Lymphocytes % (Manual) 8 % (13-43) L 12/15/21 04:39 Monocytes % (Manual) 3 % (4-9) L 12/15/21 04:39 Plt Morphology Comment Normal (NORMAL) 12/15/21 04:39 RBC Morphology Normal (NORMAL) 12/15/21 04:39 ESR 8 MM/HOUR (0-20) 12/12/21 04:12 PT 12.7 SECONDS (11.8-14.3) 12/12/21 04:12 INR Target Range - 12/12/21 04:12 INR 1.00 (0.8-1.3) 12/12/21 04:12 APTT 28.5 SECONDS (22.9-36.5) 12/12/21 04:12 PTT Comment - 12/12/21 04:12 D-Dimer 0.74 ug/ml (0.0-0.57) H* 12/12/21 04:12 Sodium 139 mmol/L (136-145) 12/15/21 04:39 Corrected Sodium 142 mmol/L (136-145) 12/15/21 04:39 Potassium 3.7 mmol/L (3.5-5.1) 12/15/21 04:39 Chloride 107 mmol/L (98-107) 12/15/21 04:39 Carbon Dioxide 23.5 mmol/L (21-32) 12/15/21 04:39 BUN 19 mg/dL (7-18) H 12/15/21 04:39 Creatinine 0.62 mg/dL (0.55-1.02) 12/15/21 04:39 Est GFR (MDRD) Af Amer > 60 (>60) 12/15/21 04:39 Est GFR (MDRD) Non-Af > 60 (>60) 12/15/21 04:39 Glucose 225 mg/dL (65-99) H 12/15/21 04:39 POC Glucose (mg/dL) 212 mg/dL (65-99) H 12/15/21 04:39 Calcium 7.6 mg/dL (8.5-10.1) L 12/15/21 04:39 Corrected Calcium 8.2 mg/dL (8.5-10.1) L 12/15/21 04:39 Total Bilirubin 0.40 mg/dL (0.2-1.0) 12/15/21 04:39 AST 16 Units/L (15-37) 12/15/21 04:39 ALT 24 Units/L (12-78) 12/15/21 04:39 Alkaline Phosphatase 53 Units/L (46-116) 12/15/21 04:39 C-Reactive Protein 0.90 mg/L (0-3.0) 12/15/21 04:39 B-Natriuretic Peptide 326 pg/mL (0-79) H 12/15/21 04:39 Total Protein 6.3 g/dL (6.4-8.2) L 12/15/21 04:39 Albumin 3.3 g/dL (3.4-5.0) L 12/15/21 04:39 Globulin 3.0 g/dL (2.5-4.5) 12/15/21 04:39 Albumin/Globulin Ratio 1.1 Ratio (1.1-2.1) 12/15/21 04:39 Specimen Type Clean catch urine 12/12/21 04:00 Urine Color Red (YELLOW) 12/12/21 04:00 Urine Appearance Cloudy (CLEAR) 12/12/21 04:00 Urine pH Cancelled 12/12/21 04:00 Ur Specific [place] Cancelled 12/12/21 04:00 Urine Protein Cancelled 12/12/21 04:00 Urine Glucose (UA) Cancelled 12/12/21 04:00 Urine Ketones Cancelled 12/12/21 04:00 Urine Occult Blood Cancelled 12/12/21 04:00 Urine Nitrite Cancelled 12/12/21 04:00 Urine Bilirubin Cancelled 12/12/21 04:00 Urine Urobilinogen Cancelled 12/12/21 04:00 Ur Leukocyte Esterase Cancelled 12/12/21 04:00 Urine RBC Tntc /HPF (0-3) A 12/12/21 04:00 Urine WBC None seen /HPF (0-5) 12/12/21 04:00 Ur Squamous Epith Cells Negative /HPF (NEGATIVE) 12/12/21 04:00 Urine Bacteria Negative /HPF (NEGATIVE) 12/12/21 04:00 Ur Culture Indicated? No/not indicated 12/12/21 04:00 SARS CoV-2 RNA Rapid BRITTANY Positive (NEGATIVE) A 12/12/21 06:07 Blood Type B POSITIVE 12/12/21 06:10 - Plan (1) Acute ITP Status: Acute Plan: TRANSFUSE PLATELETS, IV FLUIDS, IV ANTIBITOTICS, IV STEROIDS, IMMUNE SUPPLEMENTS, RESUME HOME MEDS (2) Pneumonia due to COVID-19 virus Status: Acute (3) Hypertension Status: Chronic Qualifiers: Hypertension type: primary hypertension Qualified Code(s): I10 - Essential (primary) hypertension (4) Depression Status: Chronic Qualifiers: Depression Type: unspecified Qualified Code(s): F32.A - Depression, unspecified (5) Hyperlipidemia Status: Chronic Qualifiers: Hyperlipidemia type: mixed hyperlipidemia Qualified Code(s): E78.2 - Mixed hyperlipidemia
--- NOTE | 2021-12-15 09:25 | PCM.PROG ---
Progress Note - Progress Note for Day of Date of Exam: 12/15/21 - Subjective Subjective: WAS ADMITTED ON 12/12 FOR TREATMENT OF PNEUMONIA DUE TO COVID-19 AND ACUTE ITP. SHE HAS A PMH OF DM II, HTN, DEPRESSION, AND HYPERLIPIDEMIA. HER PLATELETS IN AUGUST OF 2021 WERE 188. SHE HAS RECEIVED SIX SUPERPACKS OF PLATELETS SINCE ADMISSION. HLA PLATELET ANTIBODY SCREEN SENT OUT YESTERDAY AND IS PENDING. TODAY, SHE IS ALERT AND ORIENTED, LYING IN BED ON MORNING ROUNDS. SHE REPORTS GENERALIZED WEAKNESS, SHORTNESS OF BREATH AT TIMES, AND CONTINUES TO HAVE LESIONS IN MOUTH, ALTHOUGH, THESE HAVE IMPROVED. RASH HAS RESOLVED. SHORTNESS OF BREATH IS SLIGHTLY WORSE TODAY. SHE IS NOW UTILIZING OXYGEN VIA NASAL CANNULA AT 2 LPM. SHE IS CURRENTLY ON ROOM AIR. ON EXAMINATION, HEART IS REGULAR IN RATE AND RHYTHM. BILATERAL LUNGS NOTED WITH DIMINISHED LUNG SOUNDS THROUGHOUT. ABDOMEN IS ROUND, SOFT, AND NON-TENDER WITH NORMAL BOWEL SOUNDS NOTED IN ALL QUADRNATS. HER VITALS THIS MORNING ARE: 98.1-69-16-94%-122/62. LABS WERE OBTAINED. ABNORMAL LAB VALUES INCLUDE THE FOLLOWING: HGB 10.2, HCT 29.8, PLT COUNT 2, CHLORIDE 110, GLUCOSE 211, CALCIUM 8.1, BNP 251. CHEST XRAY OBTAINED AND REVEALED: The cardiac and mediastinal contours are within normal limits. The lungs are clear without focal consolidation or segmental collapse. No pleural effusion or pneumothorax. SHE IS CURRENTLY RECEIVING NORMAL SALINE AT 50 ML/HR, LEVAQUIN 500MG IV DAILY, SOLU- MEDROL 80MG IV Q8H, VITAMIN C 1G PO Q6H, LUVOX 50MG PO BID, IVERMECTIN DAILY, VITAMIN A DAILY, AND ZINC SULFATE 220MG PO BID. HER HOME MEDICATIONS WERE ALSO RESUMED. WHEN HLA PLATELET ANTIBODY SCREEN IS COMPLETE AND PLATELETS ARE AVAILABE, WE WILL TRANSFUSE ADDITIONAL PACKS. OTHERWISE, WE WILL CONTINUE WITH CURRENT PLAN TODAY. WE WILL FOLLOW UP WITH AM LABS AND CONTINUE TO MONITOR. TIME SPENT ON CLINICAL ASSESSMENT, REVIEWING LABS AND IMAGING, DECISION MAKING, AND DOCUMENTATION GREATER THAN 45 MINUTES. - Past Medical Family Social History Past Med/Fam/Surg Hx: No changes since H&P Allergies: Allergies cefaclor [From [facility]] Allergy (Verified 12/12/21 04:40) - Review of Systems ROS: No change since H&P - Vital Signs and I&O's Vital Signs: Temperature 98.1 F Pulse Rate [Radial] 70 Pulse Rate 69 Respiratory Rate 16 Blood Pressure [Left Arm] 135/71 Blood Pressure 122/62 O2 Sat by Pulse Oximetry 94 Intake and Output: Intake & Output 12/12/21 12/13/21 12/14/21 12/15/21 11:59 11:59 11:59 11:59 Intake Total 2136 / 1821 2956 / 2956 Balance 2136 2956 / 2956 - Physical Exam Oriented: Normal Eyes: Normal Ear: Normal Nose: Normal Throat: Other (LESIONS TO MOUTH AND TONGUE) Respiratory: Generalized, Diminished Cardiovascular: Normal : Normal Auscultation: Bowel Sounds: Normal Palpation: Normal Tenderness: Normal Skin: Normal Musculoskeletal: Normal Psychiatric: Normal Mood Description: Calm Affect: Normal Speech Pattern: Clear, Appropriate - Laboratory and Diagnostics Result Diagrams: 12/15/21 04:39 12/15/21 04:39 Labs: Laboratory WBC 6.6 X10^3/uL (3.6-10.0) 12/15/21 04:39 RBC 3.63 X10^6/uL (3.5-5.4) 12/15/21 04:39 Hgb 10.2 g/dL (12.0-16.0) L 12/15/21 04:39 Hct 29.8 % (36.0-47.0) L 12/15/21 04:39 MCV 82.2 fL (80.0-100.0) 12/15/21 04:39 MCH 28.1 pg (27.0-34.0) 12/15/21 04:39 MCHC 34.1 g/dL (33.0-35.0) 12/15/21 04:39 RDW 13.7 % (11.6-16.5) 12/15/21 04:39 Plt Count 2 X10^3/uL (150.0-450.0) L* 12/15/21 04:39 Plt Count Comment Decreased (ADEQUATE) A 12/15/21 04:39 MPV 9.7 fL (7.4-11.0) 12/15/21 04:39 Neut % (Auto) 88.2 % (42.0-75.0) H 12/15/21 04:39 Lymph % (Auto) 8.2 % (21.0-51.0) L 12/15/21 04:39 [place] % (Auto) 3.4 % (0.0-13.0) 12/15/21 04:39 Eos % (Auto) 0.1 % (0.9-2.9) L 12/15/21 04:39 Baso % (Auto) 0.1 % (0.2-1.0) L 12/15/21 04:39 Neut # (Auto) 5.8 x10^3/uL (2.2-4.8) H 12/15/21 04:39 Lymph # (Auto) 0.5 X10^3/uL (1.3-2.9) L 12/15/21 04:39 [place] # (Auto) 0.2 x10^3/uL (0.3-0.8) L 12/15/21 04:39 Eos # (Auto) 0.0 x10^3/uL (0.0-0.2) 12/15/21 04:39 Baso # (Auto) 0.0 X10^3/uL (0.0-0.1) 12/15/21 04:39 Absolute Nucleated RBC 0.1 /100WBC 12/15/21 04:39 Total Counted 100 12/15/21 04:39 Neutrophils % (Manual) 89 % (39-76) H 12/15/21 04:39 Band Neutrophils % 4 % (0-10) 12/13/21 05:05 Lymphocytes % (Manual) 8 % (13-43) L 12/15/21 04:39 Monocytes % (Manual) 3 % (4-9) L 12/15/21 04:39 Plt Morphology Comment Normal (NORMAL) 12/15/21 04:39 RBC Morphology Normal (NORMAL) 12/15/21 04:39 ESR 8 MM/HOUR (0-20) 12/12/21 04:12 PT 12.7 SECONDS (11.8-14.3) 12/12/21 04:12 INR Target Range - 12/12/21 04:12 INR 1.00 (0.8-1.3) 12/12/21 04:12 APTT 28.5 SECONDS (22.9-36.5) 12/12/21 04:12 PTT Comment - 12/12/21 04:12 D-Dimer 0.74 ug/ml (0.0-0.57) H* 12/12/21 04:12 Sodium 139 mmol/L (136-145) 12/15/21 04:39 Corrected Sodium 142 mmol/L (136-145) 12/15/21 04:39 Potassium 3.7 mmol/L (3.5-5.1) 12/15/21 04:39 Chloride 107 mmol/L (98-107) 12/15/21 04:39 Carbon Dioxide 23.5 mmol/L (21-32) 12/15/21 04:39 BUN 19 mg/dL (7-18) H 12/15/21 04:39 Creatinine 0.62 mg/dL (0.55-1.02) 12/15/21 04:39 Est GFR (MDRD) Af Amer > 60 (>60) 12/15/21 04:39 Est GFR (MDRD) Non-Af > 60 (>60) 12/15/21 04:39 Glucose 225 mg/dL (65-99) H 12/15/21 04:39 POC Glucose (mg/dL) 212 mg/dL (65-99) H 12/15/21 04:39 Calcium 7.6 mg/dL (8.5-10.1) L 12/15/21 04:39 Corrected Calcium 8.2 mg/dL (8.5-10.1) L 12/15/21 04:39 Total Bilirubin 0.40 mg/dL (0.2-1.0) 12/15/21 04:39 AST 16 Units/L (15-37) 12/15/21 04:39 ALT 24 Units/L (12-78) 12/15/21 04:39 Alkaline Phosphatase 53 Units/L (46-116) 12/15/21 04:39 C-Reactive Protein 0.90 mg/L (0-3.0) 12/15/21 04:39 B-Natriuretic Peptide 326 pg/mL (0-79) H 12/15/21 04:39 Total Protein 6.3 g/dL (6.4-8.2) L 12/15/21 04:39 Albumin 3.3 g/dL (3.4-5.0) L 12/15/21 04:39 Globulin 3.0 g/dL (2.5-4.5) 12/15/21 04:39 Albumin/Globulin Ratio 1.1 Ratio (1.1-2.1) 12/15/21 04:39 Specimen Type Clean catch urine 12/12/21 04:00 Urine Color Red (YELLOW) 12/12/21 04:00 Urine Appearance Cloudy (CLEAR) 12/12/21 04:00 Urine pH Cancelled 12/12/21 04:00 Ur Specific [place] Cancelled 12/12/21 04:00 Urine Protein Cancelled 12/12/21 04:00 Urine Glucose (UA) Cancelled 12/12/21 04:00 Urine Ketones Cancelled 12/12/21 04:00 Urine Occult Blood Cancelled 12/12/21 04:00 Urine Nitrite Cancelled 12/12/21 04:00 Urine Bilirubin Cancelled 12/12/21 04:00 Urine Urobilinogen Cancelled 12/12/21 04:00 Ur Leukocyte Esterase Cancelled 12/12/21 04:00 Urine RBC Tntc /HPF (0-3) A 12/12/21 04:00 Urine WBC None seen /HPF (0-5) 12/12/21 04:00 Ur Squamous Epith Cells Negative /HPF (NEGATIVE) 12/12/21 04:00 Urine Bacteria Negative /HPF (NEGATIVE) 12/12/21 04:00 Ur Culture Indicated? No/not indicated 12/12/21 04:00 SARS CoV-2 RNA Rapid BRITTANY Positive (NEGATIVE) A 12/12/21 06:07 Blood Type B POSITIVE 12/12/21 06:10 - Plan (1) Acute ITP Status: Acute Plan: TRANSFUSE PLATELETS, IV FLUIDS, IV ANTIBITOTICS, IV STEROIDS, IMMUNE SUPPLEMENTS, RESUME HOME MEDS (2) Pneumonia due to COVID-19 virus Status: Acute (3) Hypertension Status: Chronic Qualifiers: Hypertension type: primary hypertension Qualified Code(s): I10 - Essential (primary) hypertension (4) Depression Status: Chronic Qualifiers: Depression Type: unspecified Qualified Code(s): F32.A - Depression, unspecified (5) Hyperlipidemia Status: Chronic Qualifiers: Hyperlipidemia type: mixed hyperlipidemia Qualified Code(s): E78.2 - Mixed hyperlipidemia
[2021-12-15] MEDS: SNACK - Diabetic Appropriate PO SCH (20:37)
[2021-12-15] MEDS: XANAX PO PRN (21:56)
[2021-12-16] MEDS: VITAMIN C PO SCH ×4 (05:06→23:27)
[2021-12-16] MEDS: SOLU-Medrol 40 MG VIAL IVP SCH ×3 (05:06→21:33)
[2021-12-16] MEDS: NovoLIN R (or HumuLIN R) SUBCUT PRN ×4 (05:24→21:38)
[2021-12-16 05:38] LABS: BASOPHILS % (AUTO) 0.1 % (0.2-1.0); EOSINOPHILS % (AUTO) 0.1 % (0.9-2.9); HEMATOCRIT 30.3 % (36.0-47.0); HEMOGLOBIN 10.5 g/dL (12.0-16.0); LYMPHOCYTES # (AUTO) 0.6 X10^3/uL (1.3-2.9); LYMPHOCYTES % (AUTO) 9.6 % (21.0-51.0); MEAN CORPUSCULAR HEMOGLOBIN 28.1 pg (27.0-34.0); MEAN CORPUSCULAR HGB CONC 34.5 g/dL (33.0-35.0); MEAN CORPUSCULAR VOLUME 81.4 fL (80.0-100.0); MEAN PLATELET VOLUME 11.1 fL (7.4-11.0); MONOCYTES # (AUTO) 0.3 x10^3/uL (0.3-0.8); MONOCYTES % (AUTO) 4.9 % (0.0-13.0); NEUTROPHILS % (AUTO) 85.3 % (42.0-75.0); RED BLOOD COUNT 3.72 X10^6/uL (3.5-5.4); RED CELL DISTRIBUTION WIDTH 13.4 % (11.6-16.5); WHITE BLOOD COUNT 5.9 X10^3/uL (3.6-10.0)
[2021-12-16 05:48] LABS: ALANINE AMINOTRANSFERASE 25 Units/L (12-78); ALBUMIN 3.1 g/dL (3.4-5.0); ALKALINE PHOSPHATASE 56 Units/L (46-116); ASPARTATE AMINO TRANSFERASE 14 Units/L (15-37); BLOOD UREA NITROGEN 15 mg/dL (7-18); CALCIUM 7.1 mg/dL (8.5-10.1); CARBON DIOXIDE 25.1 mmol/L (21-32); CHLORIDE 111 mmol/L (98-107); COR CA(FOR HYPOALB) 7.8 mg/dL (8.5-10.1); COR NA(FOR HYPERGLY) 149 mmol/L (136-145); SODIUM 146 mmol/L (136-145); TOTAL PROTEIN 5.8 g/dL (6.4-8.2); eGFR NON BLACK RACES > 60 (>60)
[2021-12-16 05:54] LABS: ABG ALLEN TEST YES; ABG HCO3 25.5 mmol/L (22-26)
[2021-12-16 06:16] LABS: PLATELET MORPHOLOGY COMMENT NORMAL (NORMAL)
--- NOTE | 2021-12-16 07:06 | RAD ---
HISTORYSOBSTUDYCHEST, 1 [id number].[email or web address] view of the chestFINDINGSThe cardiac and mediastinal contours are within normal limits. The lungs are clear without focal consolidation or segmental collapse. No pleural effusion or pneumothorax. Soft tissue attenuation limits evaluation.IMPRESSIONNo acute pulmonary process radiographically.Electronically signed by: Emmett Sky (Dec 16, 2021 07:06:15)
[2021-12-16] MEDS: PULMICORT NEB TX 0.5 MG NEB SCH ×2 (08:20→20:37)
[2021-12-16] MEDS: BROVANA IN SCH ×2 (08:20→20:37)
[2021-12-16] MEDS: IVERMECTIN PO SCH (08:46)
[2021-12-16] MEDS: LUVOX PO SCH ×3 (08:47→23:27)
[2021-12-16] MEDS: LEVAQUIN PREMIX IV 500 MG 500 MG/100 ML BAG IV SCH (08:47)
[2021-12-16] MEDS: LOPRESSOR TAB 25 MG PO SCH (08:47)
[2021-12-16] MEDS: ZINC SULFATE PO SCH ×2 (08:48→21:33)
[2021-12-16] MEDS: TRICOR TAB 145 MG PO SCH (08:48)
[2021-12-16] MEDS: VITAMIN A PO SCH (08:48)
--- NOTE | 2021-12-16 09:53 | PCM.PROG ---
Progress Note - Progress Note for Day of Date of Exam: 12/16/21 - Subjective Subjective: WAS ADMITTED ON 12/12 FOR TREATMENT OF PNEUMONIA DUE TO COVID-19 AND ACUTE ITP. SHE HAS A PMH OF DM II, HTN, DEPRESSION, AND HYPERLIPIDEMIA. HER PLATELETS IN AUGUST OF 2021 WERE 188. SHE HAS RECEIVED SIX SUPERPACKS OF PLATELETS SINCE ADMISSION. HLA PLATELET ANTIBODY SCREEN SENT OUT ON TUESDAY AND IS PENDING. TODAY, SHE IS ALERT AND ORIENTED, LYING IN BED ON MORNING ROUNDS. SHE REPORTS GENERALIZED WEAKNESS, SHORTNESS OF BREATH AT TIMES, AND CONTINUES TO HAVE LESIONS IN MOUTH, ALTHOUGH, THESE HAVE IMPROVED. RASH HAS RESOLVED. SHE IS CURRENTLY UTILIZING OXYGEN VIA NASAL CANNULA AT 2 LPM. ON EXAMINATION, HEART IS REGULAR IN RATE AND RHYTHM. BILATERAL LUNGS NOTED WITH DIMINISHED LUNG SOUNDS THROUGHOUT. ABDOMEN IS ROUND, SOFT, AND NON-TENDER WITH NORMAL BOWEL SOUNDS NOTED IN ALL QUADRNATS. HER VITALS THIS MORNING ARE: 97.9-60-17-90%-94%-157/81. LABS WERE OBTAINED. ABNORMAL LAB VALUES INCLUDE THE FOLLOWING: HGB 10.5, HCT 30.3, PLT COUNT 3, SODIUM 146, CHLORIDE 111, GLUCOSE 230, CALCIUM 7.1, AST 14, BNP 283, TOTAL PROTEIN 5.8, ALBUMIN 3.1. CHEST XRAY OBTAINED AND REVEALED: The cardiac and mediastinal contours are within normal limits. The lungs are clear without focal consolidation or segmental collapse. No pleural effusion or pneumothorax. Soft tissue attenuation limits evaluation. SHE IS CURRENTLY RECEIVING NORMAL SALINE AT 50 ML/HR, LEVAQUIN 500MG IV DAILY, SOLU-MEDROL 80MG IV Q8H, VITAMIN C 1G PO Q6H, LUVOX 50MG PO BID, IVERMECTIN DAILY, VITAMIN A DAILY, AND ZINC SULFATE 220MG PO BID. HER HOME MEDICATIONS WERE ALSO RESUMED. WHEN HLA PLATELET ANTIBODY SCREEN IS COMPLETE AND PLATELETS ARE AVAILABE, WE WILL TRANSFUSE ADDITIONAL PACKS. OTHERWISE, WE WILL CONTINUE WITH CURRENT PLAN TODAY. WE WILL FOLLOW UP WITH AM LABS AND CONTINUE TO MONITOR. TIME SPENT ON CLINICAL ASSESSMENT, REVIEWING LABS AND IMAGING, DECISION MAKING, AND DOCUMENTATION GREATER THAN 45 MINUTES. - Past Medical Family Social History Past Med/Fam/Surg Hx: No changes since H&P Allergies: Allergies cefaclor [From Ceclor] Allergy (Verified 12/12/21 04:40) - Review of Systems ROS: No change since H&P - Vital Signs and I&O's Vital Signs: Temperature 97.9 F Pulse Rate [Radial] 70 Pulse Rate 56 Respiratory Rate 17 Blood Pressure [Left Arm] 135/71 Blood Pressure 157/81 O2 Sat by Pulse Oximetry 89 Intake and Output: Intake & Output 12/13/21 12/14/21 12/15/21 12/16/21 11:59 11:59 11:59 11:59 Intake Total 2136 / 1821 2956 / 2956 2732 / 2732 Balance 2136 / 1821 2956 / 2956 2732 / 2732 - Physical Exam Oriented: Normal Eyes: Normal Ear: Normal Nose: Normal Throat: Other (LESIONS TO MOUTH AND TONGUE) Respiratory: Generalized, Diminished Cardiovascular: Normal : Normal Auscultation: Bowel Sounds: Normal Tenderness: Normal Skin: Normal Musculoskeletal: Normal Psychiatric: Normal Mood Description: Calm Affect: Normal Speech Pattern: Clear, Appropriate - Laboratory and Diagnostics Result Diagrams: 12/16/21 04:49 12/16/21 04:49 Labs: Laboratory WBC 5.9 X10^3/uL (3.6-10.0) 12/16/21 04:49 RBC 3.72 X10^6/uL (3.5-5.4) 12/16/21 04:49 Hgb 10.5 g/dL (12.0-16.0) L 12/16/21 04:49 Hct 30.3 % (36.0-47.0) L 12/16/21 04:49 MCV 81.4 fL (80.0-100.0) 12/16/21 04:49 MCH 28.1 pg (27.0-34.0) 12/16/21 04:49 MCHC 34.5 g/dL (33.0-35.0) 12/16/21 04:49 RDW 13.4 % (11.6-16.5) 12/16/21 04:49 Plt Count 3 X10^3/uL (150.0-450.0) L* 12/16/21 04:49 Plt Count Comment Decreased (ADEQUATE) A 12/16/21 04:49 MPV 11.1 fL (7.4-11.0) H 12/16/21 04:49 Neut % (Auto) 85.3 % (42.0-75.0) H 12/16/21 04:49 Lymph % (Auto) 9.6 % (21.0-51.0) L 12/16/21 04:49 [place] % (Auto) 4.9 % (0.0-13.0) 12/16/21 04:49 Eos % (Auto) 0.1 % (0.9-2.9) L 12/16/21 04:49 Baso % (Auto) 0.1 % (0.2-1.0) L 12/16/21 04:49 Neut # (Auto) 5.0 x10^3/uL (2.2-4.8) H 12/16/21 04:49 Lymph # (Auto) 0.6 X10^3/uL (1.3-2.9) L 12/16/21 04:49 [place] # (Auto) 0.3 x10^3/uL (0.3-0.8) 12/16/21 04:49 Eos # (Auto) 0.0 x10^3/uL (0.0-0.2) 12/16/21 04:49 Baso # (Auto) 0.0 X10^3/uL (0.0-0.1) 12/16/21 04:49 Absolute Nucleated RBC 0.3 /100WBC 12/16/21 04:49 Total Counted 100 12/16/21 04:49 Neutrophils % (Manual) 86 % (39-76) H 12/16/21 04:49 Band Neutrophils % 4 % (0-10) 12/13/21 05:05 Lymphocytes % (Manual) 10 % (13-43) L 12/16/21 04:49 Monocytes % (Manual) 4 % (4-9) 12/16/21 04:49 Plt Morphology Comment Normal (NORMAL) 12/16/21 04:49 RBC Morphology Normal (NORMAL) 12/16/21 04:49 Smear Path Review See note 12/12/21 04:12 ESR 8 MM/HOUR (0-20) 12/12/21 04:12 PT 12.7 SECONDS (11.8-14.3) 12/12/21 04:12 INR Target Range - 12/12/21 04:12 INR 1.00 (0.8-1.3) 12/12/21 04:12 APTT 28.5 SECONDS (22.9-36.5) 12/12/21 04:12 PTT Comment - 12/12/21 04:12 D-Dimer 0.74 ug/ml (0.0-0.57) H* 12/12/21 04:12 Sample Site Rr 12/16/21 05:54 ABG pH 7.470 (7.35-7.45) H 12/16/21 05:54 ABG pCO2 35.0 mmHg (35.0-45.0) 12/16/21 05:54 ABG pO2 67.0 mmHg (80.0-100.0) L 12/16/21 05:54 ABG HCO3 25.5 mmol/L (22-26) 12/16/21 05:54 ABG O2 Saturation 94.0 % (90-100) 12/16/21 05:54 ABG Base Excess 2.0 mmol/L (-2.0-2.0) 12/16/21 05:54 Lefty Test Yes 12/16/21 05:54 A-a Gradient 39.0 mmHg 12/16/21 05:54 FiO2 21.0 12/16/21 05:54 Blood Gas Comments [place] well 12/16/21 05:54 Sodium 146 mmol/L (136-145) H 12/16/21 04:49 Corrected Sodium 149 mmol/L (136-145) H 12/16/21 04:49 Potassium 3.7 mmol/L (3.5-5.1) 12/16/21 04:49 Chloride 111 mmol/L (98-107) H 12/16/21 04:49 Carbon Dioxide 25.1 mmol/L (21-32) 12/16/21 04:49 BUN 15 mg/dL (7-18) 12/16/21 04:49 Creatinine 0.60 mg/dL (0.55-1.02) 12/16/21 04:49 Est GFR (MDRD) Af Amer > 60 (>60) 12/16/21 04:49 Est GFR (MDRD) Non-Af > 60 (>60) 12/16/21 04:49 Glucose 230 mg/dL (65-99) H 12/16/21 04:49 POC Glucose (mg/dL) 214 mg/dL (65-99) H 12/16/21 05:13 Calcium 7.1 mg/dL (8.5-10.1) L 12/16/21 04:49 Corrected Calcium 7.8 mg/dL (8.5-10.1) L 12/16/21 04:49 Magnesium 2.5 mg/dL (1.7-2.9) 12/15/21 04:39 Total Bilirubin 0.40 mg/dL (0.2-1.0) 12/16/21 04:49 AST 14 Units/L (15-37) L 12/16/21 04:49 ALT 25 Units/L (12-78) 12/16/21 04:49 Alkaline Phosphatase 56 Units/L (46-116) 12/16/21 04:49 C-Reactive Protein < 0.50 mg/L (0-3.0) 12/16/21 04:49 B-Natriuretic Peptide 283 pg/mL (0-79) H 12/16/21 04:49 Total Protein 5.8 g/dL (6.4-8.2) L 12/16/21 04:49 Albumin 3.1 g/dL (3.4-5.0) L 12/16/21 04:49 Globulin 2.7 g/dL (2.5-4.5) 12/16/21 04:49 Albumin/Globulin Ratio 1.1 Ratio (1.1-2.1) 12/16/21 04:49 Specimen Type Clean catch urine 12/12/21 04:00 Urine Color Red (YELLOW) 12/12/21 04:00 Urine Appearance Cloudy (CLEAR) 12/12/21 04:00 Urine pH Cancelled 12/12/21 04:00 Ur Specific [place] Cancelled 12/12/21 04:00 Urine Protein Cancelled 12/12/21 04:00 Urine Glucose (UA) Cancelled 12/12/21 04:00 Urine Ketones Cancelled 12/12/21 04:00 Urine Occult Blood Cancelled 12/12/21 04:00 Urine Nitrite Cancelled 12/12/21 04:00 Urine Bilirubin Cancelled 12/12/21 04:00 Urine Urobilinogen Cancelled 12/12/21 04:00 Ur Leukocyte Esterase Cancelled 12/12/21 04:00 Urine RBC Tntc /HPF (0-3) A 12/12/21 04:00 Urine WBC None seen /HPF (0-5) 12/12/21 04:00 Ur Squamous Epith Cells Negative /HPF (NEGATIVE) 12/12/21 04:00 Urine Bacteria Negative /HPF (NEGATIVE) 12/12/21 04:00 Ur Culture Indicated? No/not indicated 12/12/21 04:00 SARS CoV-2 RNA Rapid BRITTANY Positive (NEGATIVE) A 12/12/21 06:07 Blood Type B POSITIVE 12/12/21 06:10 - Plan (1) Acute ITP Status: Acute Plan: TRANSFUSE PLATELETS, IV FLUIDS, IV ANTIBITOTICS, IV STEROIDS, IMMUNE SUPPLEMENTS, RESUME HOME MEDS (2) Pneumonia due to COVID-19 virus Status: Acute (3) Hypertension Status: Chronic Qualifiers: Hypertension type: primary hypertension Qualified Code(s): I10 - Essential (primary) hypertension (4) Depression Status: Chronic Qualifiers: Depression Type: unspecified Qualified Code(s): F32.A - Depression, unspecified (5) Hyperlipidemia Status: Chronic Qualifiers: Hyperlipidemia type: mixed hyperlipidemia Qualified Code(s): E78.2 - Mixed hyperlipidemia (6) Diabetes Status: Chronic Qualifiers: Diabetes mellitus type: type 2 Diabetes mellitus 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
[2021-12-16] MEDS ORDERED: NS 100 ML IV 100 ML ONE (09:58)
[2021-12-16] MEDS: NS 1,000 ML IV 1,000 ML IV SCH (12:43)
[2021-12-16] MEDS: SNACK - Diabetic Appropriate PO SCH (20:00)
[2021-12-16] MEDS: XANAX PO PRN (21:33)
[2021-12-17] MEDS: NS 1,000 ML IV 1,000 ML IV SCH ×2 (05:11→17:05)
[2021-12-17] MEDS: VITAMIN C PO SCH ×4 (05:39→22:40)
[2021-12-17] MEDS: SOLU-Medrol 40 MG VIAL IVP SCH ×3 (05:39→21:07)
[2021-12-17] MEDS: NovoLIN R (or HumuLIN R) SUBCUT PRN ×4 (05:39→21:07)
[2021-12-17 06:28] LABS: BASOPHILS % (AUTO) 0.1 % (0.2-1.0); HEMATOCRIT 30.2 % (36.0-47.0); HEMOGLOBIN 10.6 g/dL (12.0-16.0); LYMPHOCYTES # (AUTO) 0.6 X10^3/uL (1.3-2.9); LYMPHOCYTES % (AUTO) 8.6 % (21.0-51.0); MEAN CORPUSCULAR HEMOGLOBIN 28.6 pg (27.0-34.0); MEAN CORPUSCULAR HGB CONC 34.9 g/dL (33.0-35.0); MEAN CORPUSCULAR VOLUME 81.8 fL (80.0-100.0); MEAN PLATELET VOLUME 10.9 fL (7.4-11.0); MONOCYTES # (AUTO) 0.2 x10^3/uL (0.3-0.8); MONOCYTES % (AUTO) 3.1 % (0.0-13.0); NEUTROPHILS # (AUTO) 5.8 x10^3/uL (2.2-4.8); NEUTROPHILS % (AUTO) 88.2 % (42.0-75.0); RED BLOOD COUNT 3.69 X10^6/uL (3.5-5.4); RED CELL DISTRIBUTION WIDTH 13.5 % (11.6-16.5); WHITE BLOOD COUNT 6.6 X10^3/uL (3.6-10.0)
[2021-12-17 06:30] LABS: ALANINE AMINOTRANSFERASE 34 Units/L (12-78); ALBUMIN 3.2 g/dL (3.4-5.0); ALKALINE PHOSPHATASE 57 Units/L (46-116); ASPARTATE AMINO TRANSFERASE 17 Units/L (15-37); BLOOD UREA NITROGEN 14 mg/dL (7-18); CALCIUM 7.4 mg/dL (8.5-10.1); CARBON DIOXIDE 25.6 mmol/L (21-32); CHLORIDE 110 mmol/L (98-107); COR NA(FOR HYPERGLY) 148 mmol/L (136-145); CREATININE 0.54 mg/dL (0.55-1.02); SODIUM 145 mmol/L (136-145); TOTAL PROTEIN 5.8 g/dL (6.4-8.2); eGFR NON BLACK RACES > 60 (>60)
--- NOTE | 2021-12-17 08:06 | RAD ---
HISTORYSOB hypertension. Diabetes.STUDYCHEST, 1 [id number] lungs are clear. No pneumothorax or significant effusion.Heart size at the upper limits of normal.Bones are unremarkable. [EKG leads are noted. ]IMPRESSION1. No significant abnormalityElectronically signed by: Dontrell Dias (Dec 17, 2021 08:05:40)
[2021-12-17 08:07] LABS: BAND NEUTROPHILS % 2 % (0-10); METAMYELOCYTES % 2
[2021-12-17 08:08] LABS: PLATELET MORPHOLOGY COMMENT NORMAL (NORMAL)
[2021-12-17] MEDS: BROVANA IN SCH ×2 (08:39→21:25)
[2021-12-17] MEDS: PULMICORT NEB TX 0.5 MG NEB SCH ×2 (08:39→21:25)
[2021-12-17] MEDS: LEVAQUIN PREMIX IV 500 MG 500 MG/100 ML BAG IV SCH (09:36)
[2021-12-17] MEDS: LOPRESSOR TAB 25 MG PO SCH (09:37)
[2021-12-17] MEDS: TRICOR TAB 145 MG PO SCH (09:37)
[2021-12-17] MEDS: LUVOX PO SCH ×2 (09:37→21:04)
[2021-12-17] MEDS: ZINC SULFATE PO SCH ×2 (09:37→21:05)
[2021-12-17] MEDS: VITAMIN A PO SCH (09:37)
--- NOTE | 2021-12-17 09:58 | PCM.PROG ---
Progress Note - Progress Note for Day of Date of Exam: 12/17/21 - Subjective Subjective: WAS ADMITTED ON 12/12 FOR TREATMENT OF PNEUMONIA DUE TO COVID-19 AND ACUTE ITP. SHE HAS A PMH OF DM II, HTN, DEPRESSION, AND HYPERLIPIDEMIA. HER PLATELETS IN AUGUST OF 2021 WERE 188. SHE HAS RECEIVED EIGHT SUPERPACKS OF PLATELETS SINCE ADMISSION. THE LAST TWO PACKS WERE TYPE SPEC IFIC. TODAY, SHE IS ALERT AND ORIENTED, LYING IN BED ON MORNING ROUNDS. SHE CONTINUES TO REPORT GENERALIZED WEAKNESS, SHORTNESS OF BREATH AT TIMES, AND CONTINUES TO HAVE LESIONS IN MOUTH, ALTHOUGH, THESE HAVE IMPROVED. RASH HAS RESOLVED. SHE IS CURRENTLY UTILIZING OXYGEN VIA NASAL CANNULA AT 2 LPM. ON EXAMINATION, HEART IS REGULAR IN RATE AND RHYTHM. BILATERAL LUNGS NOTED WITH DIMINISHED LUNG SOUNDS THROUGHOUT. ABDOMEN IS ROUND, SOFT, AND NON-TENDER WITH NORMAL BOWEL SOUNDS NOTED IN ALL QUADRNATS. HER VITALS THIS MORNING ARE: 97.8-70-21-94%-154/77. LABS WERE OBTAINED. ABNORMAL LAB VALUES INCLUDE THE FOLLOWING: HGB 10.6, HCT 30.2, PLT COUNT 6, CHLORIDE 110, CREATININE 0.54, GLUCOSE 237, CALCIUM 7.4, BNP 355, TOTAL PROTEIN 5.8, ALBUMIN 3.2. CHEST XRAY OBTAINED AND REVEALED: NO SIGNIFICANT ABNORMALITY. SHE IS CURRENTLY RECEIVING NORMAL SALINE AT 50 ML/HR, LEVAQUIN 500MG IV DAILY, SOLU-MEDROL 80MG IV Q8H, VITAMIN C 1G PO Q6H, LUVOX 50MG PO BID, IVERMECTIN DAILY, VITAMIN A DAILY, AND ZINC SULFATE 220MG PO BID. HER HOME MEDICATIONS WERE ALSO RESUMED. WE WILL TRANSFUSE TWO ADDITIONAL SUPERPACKS OF PLATELETS WHEN THEY ARE AVAILABLE. OTHERWISE, WE WILL CONTINUE WITH CURRENT PLAN TODAY. WE WILL FOLLOW UP WITH AM LABS AND CONTINUE TO MONITOR. TIME SPENT ON CLINICAL ASSESSMENT, REVIEWING LABS AND IMAGING, DECISION MAKING, AND DOCUMENTATION GREATER THAN 45 MINUTES. - Past Medical Family Social History Past Med/Fam/Surg Hx: No changes since H&P Allergies: Allergies cefaclor [From Ceclor] Allergy (Verified 12/12/21 04:40) - Review of Systems ROS: No change since H&P - Vital Signs and I&O's Vital Signs: Temperature 97.8 F Pulse Rate [Radial] 70 Pulse Rate 74 Respiratory Rate 21 Blood Pressure [Left Arm] 135/71 Blood Pressure 154/77 O2 Sat by Pulse Oximetry 96 Intake and Output: Intake & Output 12/14/21 12/15/21 12/16/21 12/17/21 11:59 11:59 11:59 11:59 Intake Total 1821 / 1821 2956 / 2956 2732 / 2732 2474 / 2474 Balance 182 / 1822 2956 / 2956 2732 / 2732 2474 / 2474 - Physical Exam Oriented: Normal Eyes: Normal Ear: Normal Nose: Normal Throat: Other (LESIONS TO MOUTH AND TONGUE) Respiratory: Generalized, Diminished Cardiovascular: Normal : Normal Auscultation: Bowel Sounds: Normal Tenderness: Normal Skin: Normal Musculoskeletal: Normal Psychiatric: Normal Mood Description: Calm Affect: Normal Speech Pattern: Clear, Appropriate - Laboratory and Diagnostics Result Diagrams: 12/17/21 04:28 12/17/21 04:28 Labs: Laboratory WBC 6.6 X10^3/uL (3.6-10.0) 12/17/21 04:28 RBC 3.69 X10^6/uL (3.5-5.4) 12/17/21 04:28 Hgb 10.6 g/dL (12.0-16.0) L 12/17/21 04:28 Hct 30.2 % (36.0-47.0) L 12/17/21 04:28 MCV 81.8 fL (80.0-100.0) 12/17/21 04:28 MCH 28.6 pg (27.0-34.0) 12/17/21 04:28 MCHC 34.9 g/dL (33.0-35.0) 12/17/21 04:28 RDW 13.5 % (11.6-16.5) 12/17/21 04:28 Plt Count 6 X10^3/uL (150.0-450.0) L* 12/17/21 04:28 Plt Count Comment Decreased (ADEQUATE) A 12/17/21 04:28 MPV 10.9 fL (7.4-11.0) 12/17/21 04:28 Neut % (Auto) 88.2 % (42.0-75.0) H 12/17/21 04:28 Lymph % (Auto) 8.6 % (21.0-51.0) L 12/17/21 04:28 [place] % (Auto) 3.1 % (0.0-13.0) 12/17/21 04:28 Eos % (Auto) 0.0 % (0.9-2.9) L 12/17/21 04:28 Baso % (Auto) 0.1 % (0.2-1.0) L 12/17/21 04:28 Neut # (Auto) 5.8 x10^3/uL (2.2-4.8) H 12/17/21 04:28 Lymph # (Auto) 0.6 X10^3/uL (1.3-2.9) L 12/17/21 04:28 [place] # (Auto) 0.2 x10^3/uL (0.3-0.8) L 12/17/21 04:28 Eos # (Auto) 0.0 x10^3/uL (0.0-0.2) 12/17/21 04:28 Baso # (Auto) 0.0 X10^3/uL (0.0-0.1) 12/17/21 04:28 Absolute Nucleated RBC 0.4 /100WBC 12/17/21 04:28 Total Counted 100 12/17/21 04:28 Neutrophils % (Manual) 88 % (39-76) H 12/17/21 04:28 Band Neutrophils % 2 % (0-10) 12/17/21 04:28 Lymphocytes % (Manual) 6 % (13-43) L 12/17/21 04:28 Monocytes % (Manual) 2 % (4-9) L 12/17/21 04:28 Metamyelocytes % 2 12/17/21 04:28 Plt Morphology Comment Normal (NORMAL) 12/17/21 04:28 RBC Morphology Normal (NORMAL) 12/17/21 04:28 Smear Path Review See note 12/12/21 04:12 ESR 8 MM/HOUR (0-20) 12/12/21 04:12 PT 12.7 SECONDS (11.8-14.3) 12/12/21 04:12 INR Target Range - 12/12/21 04:12 INR 1.00 (0.8-1.3) 12/12/21 04:12 APTT 28.5 SECONDS (22.9-36.5) 12/12/21 04:12 PTT Comment - 12/12/21 04:12 D-Dimer 0.74 ug/ml (0.0-0.57) H* 12/12/21 04:12 Sample Site Rr 12/16/21 05:54 ABG pH 7.470 (7.35-7.45) H 12/16/21 05:54 ABG pCO2 35.0 mmHg (35.0-45.0) 12/16/21 05:54 ABG pO2 67.0 mmHg (80.0-100.0) L 12/16/21 05:54 ABG HCO3 25.5 mmol/L (22-26) 12/16/21 05:54 ABG O2 Saturation 94.0 % (90-100) 12/16/21 05:54 ABG Base Excess 2.0 mmol/L (-2.0-2.0) 12/16/21 05:54 [place]efty Test Yes 12/16/21 05:54 A-a Gradient 39.0 mmHg 12/16/21 05:54 FiO2 21.0 12/16/21 05:54 Blood Gas Comments [place] well 12/16/21 05:54 Sodium 145 mmol/L (136-145) 12/17/21 04:28 Corrected Sodium 148 mmol/L (136-145) H 12/17/21 04:28 Potassium 3.5 mmol/L (3.5-5.1) 12/17/21 04:28 Chloride 110 mmol/L (98-107) H 12/17/21 04:28 Carbon Dioxide 25.6 mmol/L (21-32) 12/17/21 04:28 BUN 14 mg/dL (7-18) 12/17/21 04:28 Creatinine 0.54 mg/dL (0.55-1.02) L 12/17/21 04:28 Est GFR (MDRD) Af Amer > 60 (>60) 12/17/21 04:28 Est GFR (MDRD) Non-Af > 60 (>60) 12/17/21 04:28 Glucose 237 mg/dL (65-99) H 12/17/21 04:28 POC Glucose (mg/dL) 228 mg/dL (65-99) H 12/17/21 05:18 Calcium 7.4 mg/dL (8.5-10.1) L 12/17/21 04:28 Corrected Calcium 8.0 mg/dL (8.5-10.1) L 12/17/21 04:28 Magnesium 2.5 mg/dL (1.7-2.9) 12/15/21 04:39 Total Bilirubin 0.50 mg/dL (0.2-1.0) 12/17/21 04:28 AST 17 Units/L (15-37) 12/17/21 04:28 ALT 34 Units/L (12-78) 12/17/21 04:28 Alkaline Phosphatase 57 Units/L (46-116) 12/17/21 04:28 C-Reactive Protein 0.50 mg/L (0-3.0) 12/17/21 04:28 B-Natriuretic Peptide 355 pg/mL (0-79) H 12/17/21 04:28 Total Protein 5.8 g/dL (6.4-8.2) L 12/17/21 04:28 Albumin 3.2 g/dL (3.4-5.0) L 12/17/21 04:28 Globulin 2.6 g/dL (2.5-4.5) 12/17/21 04:28 Albumin/Globulin Ratio 1.2 Ratio (1.1-2.1) 12/17/21 04:28 Specimen Type Clean catch urine 12/12/21 04:00 Urine Color Red (YELLOW) 12/12/21 04:00 Urine Appearance Cloudy (CLEAR) 12/12/21 04:00 Urine pH Cancelled 12/12/21 04:00 Ur Specific [place] Cancelled 12/12/21 04:00 Urine Protein Cancelled 12/12/21 04:00 Urine Glucose (UA) Cancelled 12/12/21 04:00 Urine Ketones Cancelled 12/12/21 04:00 Urine Occult Blood Cancelled 12/12/21 04:00 Urine Nitrite Cancelled 12/12/21 04:00 Urine Bilirubin Cancelled 12/12/21 04:00 Urine Urobilinogen Cancelled 12/12/21 04:00 Ur Leukocyte Esterase Cancelled 12/12/21 04:00 Urine RBC Tntc /HPF (0-3) A 12/12/21 04:00 Urine WBC None seen /HPF (0-5) 12/12/21 04:00 Ur Squamous Epith Cells Negative /HPF (NEGATIVE) 12/12/21 04:00 Urine Bacteria Negative /HPF (NEGATIVE) 12/12/21 04:00 Ur Culture Indicated? No/not indicated 12/12/21 04:00 SARS CoV-2 RNA Rapid BRITTANY Positive (NEGATIVE) A 12/12/21 06:07 Blood Type B POSITIVE 12/12/21 06:10 - Plan (1) Acute ITP Status: Acute Plan: TRANSFUSE PLATELETS, IV FLUIDS, IV ANTIBITOTICS, IV STEROIDS, IMMUNE SUPPLEMENTS, RESUME HOME MEDS (2) Pneumonia due to COVID-19 virus Status: Acute (3) Hypertension Status: Chronic Qualifiers: Hypertension type: primary hypertension Qualified Code(s): I10 - Essential (primary) hypertension (4) Depression Status: Chronic Qualifiers: Depression Type: unspecified Qualified Code(s): F32.A - Depression, unspecified (5) Hyperlipidemia Status: Chronic Qualifiers: Hyperlipidemia type: mixed hyperlipidemia Qualified Code(s): E78.2 - Mixed hyperlipidemia (6) Diabetes Status: Chronic Qualifiers: Diabetes mellitus type: type 2 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
[2021-12-17] MEDS ORDERED: NS 100 ML IV 100 ML ONE (16:30)
[2021-12-17 20:07] LABS: BILIRUBIN,URINE NEGATIVE (NEGATIVE); BLOOD/HEMOGLOBIN,URINE NEGATIVE (NEGATIVE); GLUCOSE, URINE 4+ (NEGATIVE); KETONES,URINE NEGATIVE (NEGATIVE); LEUKOCYTE ESTERASE ,URINE NEGATIVE (NEGATIVE); NITRITES,URINE NEGATIVE (NEGATIVE); PROTEIN,URINE NEGATIVE (NEGATIVE); UROBILINOGEN,URINE NORMAL (NORMAL)
[2021-12-17 20:27] LABS: APPEARANCE,URINE CLEAR (CLEAR); COLOR,URINE PALE YELLOW (YELLOW)
[2021-12-17] MEDS: SNACK - Diabetic Appropriate PO SCH (21:00)
[2021-12-17] MEDS: XANAX PO PRN (21:05)
[2021-12-18] MEDS: VITAMIN C PO SCH ×2 (05:21→10:05)
[2021-12-18] MEDS: SOLU-Medrol 40 MG VIAL IVP SCH (05:21)
[2021-12-18 06:02] LABS: BASOPHILS % (AUTO) 0.2 % (0.2-1.0); HEMATOCRIT 30.5 % (36.0-47.0); HEMOGLOBIN 10.8 g/dL (12.0-16.0); LYMPHOCYTES # (AUTO) 0.4 X10^3/uL (1.3-2.9); LYMPHOCYTES % (AUTO) 5.8 % (21.0-51.0); MEAN CORPUSCULAR HEMOGLOBIN 28.8 pg (27.0-34.0); MEAN CORPUSCULAR HGB CONC 35.3 g/dL (33.0-35.0); MEAN CORPUSCULAR VOLUME 81.7 fL (80.0-100.0); MEAN PLATELET VOLUME 10.3 fL (7.4-11.0); MONOCYTES # (AUTO) 0.3 x10^3/uL (0.3-0.8); MONOCYTES % (AUTO) 3.7 % (0.0-13.0); NEUTROPHILS # (AUTO) 6.4 x10^3/uL (2.2-4.8); NEUTROPHILS % (AUTO) 90.3 % (42.0-75.0); RED BLOOD COUNT 3.73 X10^6/uL (3.5-5.4); RED CELL DISTRIBUTION WIDTH 13.6 % (11.6-16.5); WHITE BLOOD COUNT 7.1 X10^3/uL (3.6-10.0)
[2021-12-18 06:03] LABS: ALANINE AMINOTRANSFERASE 29 Units/L (12-78); ALBUMIN 3.1 g/dL (3.4-5.0); ALKALINE PHOSPHATASE 64 Units/L (46-116); ASPARTATE AMINO TRANSFERASE 14 Units/L (15-37); BLOOD UREA NITROGEN 14 mg/dL (7-18); CALCIUM 6.8 mg/dL (8.5-10.1); CARBON DIOXIDE 27.5 mmol/L (21-32); CHLORIDE 108 mmol/L (98-107); COR CA(FOR HYPOALB) 7.5 mg/dL (8.5-10.1); COR NA(FOR HYPERGLY) 146 mmol/L (136-145); CREATININE 0.51 mg/dL (0.55-1.02); SODIUM 142 mmol/L (136-145); TOTAL PROTEIN 5.7 g/dL (6.4-8.2); eGFR NON BLACK RACES > 60 (>60)
[2021-12-18] MEDS: NovoLIN R (or HumuLIN R) SUBCUT PRN (06:13)
[2021-12-18] MEDS ORDERED: MICRO K EXTEN CAP 10 MEQ PO PRN (07:07)
[2021-12-18] MEDS ORDERED: POTASSIUM CHL 40 MEQ/NS 0.45% 500 ML IV PRN (07:07)
[2021-12-18] MEDS ORDERED: K-DUR TAB 20 MEQ PO PRN (07:07)
[2021-12-18] MEDS ORDERED: KLOR-CON PO PRN (07:07)
[2021-12-18] MEDS ORDERED: POTASSIUM CHLORIDE LIQ 20 MEQ UDC PO PRN (07:07)
[2021-12-18] MEDS ORDERED: MAGNESIUM SULFATE 1 GRAM/100 mL PREMIX 1 G/100 ML BAG IV PRN (07:07)
[2021-12-18] MEDS ORDERED: POTASSIUM CHL 60 MEQ/NS 0.45% 500 ML IV PRN (07:07)
[2021-12-18] MEDS ORDERED: K-RIDER 10 MEQ/NS 100 ML 10 MEQ/100 ML BAG IV PRN (07:07)
[2021-12-18 08:07] LABS: BAND NEUTROPHILS % 6 % (0-10); METAMYELOCYTES % 1; PLATELET MORPHOLOGY COMMENT NORMAL (NORMAL)
[2021-12-18] MEDS: NS 1,000 ML IV 1,000 ML IV SCH (08:38)
[2021-12-18] MEDS: LEVAQUIN PREMIX IV 500 MG 500 MG/100 ML BAG IV SCH (08:38)
[2021-12-18] MEDS: LOPRESSOR TAB 25 MG PO SCH (08:38)
[2021-12-18] MEDS: LUVOX PO SCH (08:39)
[2021-12-18] MEDS: VITAMIN A PO SCH (08:39)
[2021-12-18] MEDS: ZINC SULFATE PO SCH (08:39)
[2021-12-18] MEDS: TRICOR TAB 145 MG PO SCH (08:39)
[2021-12-18 10:04] VITALS: BP 166/74
== END 2021-12-18 11:30 | disposition home or self-care (01) | DRG 177 ==
LOC: ER 02:54 → ICU 02:54 → OBSVTOIN 07:15 → ICU 07:46
PROVIDERS: ADMIT Internal Medicine; ATTEND Internal Medicine
DX: F32.A Depression, unspecified; I10 Essential (primary) hypertension; K13.79 Other lesions of oral mucosa; U07.1 COVID-19; D69.3 Immune thrombocytopenic purpura; R06.02 Shortness of breath; K21.9 Gastro-esophageal reflux disease without esophagitis; R79.1 Abnormal coagulation profile; E11.65 Type 2 diabetes mellitus with hyperglycemia; E78.2 Mixed hyperlipidemia; J12.82 Pneumonia due to coronavirus disease 2019

== ENCOUNTER 2023-01-07 11:20 | Inpatient (IN) ==
--- NOTE | 2023-01-07 11:34 | ED.ABDFE ---
HPI Time Seen Time Seen by Provider: 01/07/23 11:32 Complaint Doctors Chief Complaint Comments: NAUSEA,VOMITING AND DIARRHEA FOR 5 DAYS PMH PMH Past Medical History: Diabetes and Hypertension Past Surgical History: Yes Surgical History: Hysterectomy Family History Family Medical History: Diabetes Mellitus and Heart Failure Social History Do you use any recreational Drugs:: No ROS Review of Systems Constitutional: Other (NAUSEA,VOMITING AND DIARRHEA) Eyes: No Symptoms Reported ENTM: No Symptoms Reported Respiratoy: No Symptoms Reported Cardiovascular: No Symptoms Reported Gastrointestinal/Abdominal: Diarrhea, Nausea and Vomiting Genitourinary: No Symptoms Reported Neurological: No Symptoms Reported Musculoskeletal: No Symptoms Reported Integumentary: No Symptoms Reported Hematologic/Lymphatic: No Symptoms Reported Endocrine: No Symptoms Reported Psychiatric: No Symptoms Reported PE Vital Signs Vitals: Temperature 98 F Pulse Rate 66 Respiratory Rate 16 Blood Pressure [Left Arm] 135/71 Blood Pressure 123/69 O2 Sat by Pulse Oximetry 100 General Limitations: No Limitations General Appearance: In Distress (MILD DISTRESS) Head Head Exam: Normal Inspection, Atraumatic and Normocephalic Eyes Eye exam: Normal Appearance, PERRL and EOMI ENT ENT Exam: Normal Exam, Normal Oropharynx and Normal External Ear Exam Neck Neck Exam: Normal Inspection, Full ROM and Trachea Midline Chest Chest Inspection: Normal Inspection and Symmetric Chest Wall Rise Respiratory Respiratory Exam: Normal Lung Sounds Bilat Respiratory Exam: Bilateral: Clear to Auscultation Cardiovascular Cardiovascular Exam: Regular Rate and Normal Rhythm Abdominal Exam Abdominal Exam: Normal Inspection, Normal Bowel Sounds and Soft Rectal Rectal Exam: Deferred Extremeties Extremities Exam: Normal Inspection and Full ROM External Exam: Female: Deferred Neurologic Neurological Exam: Alert, Oriented X3 and CN II-XII Intact MDM Differential Diagnosis Differential Diagnosis- Considerations may include:: Gastritus/PUD, Gastroenteritis, Urinary tract infection and Other (comments) (DEHYDRATION) COURSE Treatment Treatment: PATIENT REMAINED RELATIVELY STABLE DURING ER EVALUATION. WAS GIVEN ONE LITER BOLUS OF NACL AND ZOFRAN 4MG IV . LAB EVALUATION SHOWED AMYLACE OF 1985 AND LIPASE OF 30,000. CT OF ABD/PELVIS SHOWED MILDLY DILATED APENDIX,THIS IS INDETERMINANT,EQUIVOCAL FOR APPENDICITS. CONSIDER SURGICONSULT. THE PATIENT WANTED TO HAVE DR CORTES EVALUATE THEM AND HE WAS CALLED AND HE SAW THE PATIENT AT 1340. HE STATED TO GET AN ULTRASOUND OF RUQ SINCE AMYLASE AND LIPASE WERE ELEVATED.THR ULTRASOUND SHOWED INCREASED HEPATIC ECHTEXTURE WHICH MAY BE SEEN WIH HEPATOCELLULAR DISEASE AND OR STEATOSIS. SPOKE TO DR LEE AT 1650 AND HE STATED THAT THE PATIENT HAS PANCREATITIS AND MIGHT HAVE A BILIARY OBSTRUTION. WILL NEED MRICP TO FURTHER EVALUATE. WE CALLED RADIOLOGY BUT THE CREW HAD ALREADY LEFT FOR TODAY. SPOKE BACK WITH DR LEE AT 1720 AND HE STATED TO ADMIT THE PATIENT AND HYDRATE,MAKE NPO AND COVER WITH PAIN MEDS Q 3 HOURS. SHE WILL BE REFERRED TO OBSERVATION. ROR Labs Reviewed Laboratory Results Reviewed?: Yes Result Diagrams: 01/07/23 12:00 01/07/23 12:00 Laboratory: WBC 14.9 X10^3/uL (3.6-10.0) H 01/07/23 12:00 RBC 4.85 X10^6/uL (3.5-5.4) 01/07/23 12:00 Hgb 13.3 g/dL (12.0-16.0) 01/07/23 12:00 Hct 39.0 % (36.0-47.0) 01/07/23 12:00 MCV 80.4 fL (80.0-100.0) 01/07/23 12:00 MCH 27.4 pg (27.0-34.0) 01/07/23 12:00 MCHC 34.1 g/dL (33.0-35.0) 01/07/23 12:00 RDW 14.2 % (11.6-16.5) 01/07/23 12:00 Plt Count 228 X10^3/uL (150.0-450.0) 01/07/23 12:00 MPV 8.9 fL (7.4-11.0) 01/07/23 12:00 Neut % (Auto) 83.6 % (42.0-75.0) H 01/07/23 12:00 Lymph % (Auto) 8.3 % (21.0-51.0) L 01/07/23 12:00 [place] % (Auto) 4.4 % (0.0-13.0) 01/07/23 12:00 Eos % (Auto) 3.3 % (0.9-2.9) H 01/07/23 12:00 Baso % (Auto) 0.4 % (0.2-1.0) 01/07/23 12:00 Neut # (Auto) 12.4 x10^3/uL (2.2-4.8) H 01/07/23 12:00 Lymph # (Auto) 1.2 X10^3/uL (1.3-2.9) L 01/07/23 12:00 [place] # (Auto) 0.7 x10^3/uL (0.3-0.8) 01/07/23 12:00 Eos # (Auto) 0.5 x10^3/uL (0.0-0.2) H 01/07/23 12:00 Baso # (Auto) 0.1 X10^3/uL (0.0-0.1) 01/07/23 12:00 Absolute Nucleated RBC 0.0 /100WBC 01/07/23 12:00 Sodium 140 mmol/L (136-145) 01/07/23 12:00 Corrected Sodium 141 mmol/L (136-145) 01/07/23 12:00 Potassium 3.6 mmol/L (3.5-5.1) 01/07/23 12:00 Chloride 103 mmol/L (98-107) 01/07/23 12:00 Carbon Dioxide 26.0 mmol/L (21-32) 01/07/23 12:00 BUN 15 mg/dL (7-18) 01/07/23 12:00 Creatinine 0.81 mg/dL (0.55-1.02) 01/07/23 12:00 Est GFR (MDRD) Af Amer > 60 (>60) 01/07/23 12:00 Est GFR (MDRD) Non-Af > 60 (>60) 01/07/23 12:00 Glucose 156 mg/dL (65-99) H 01/07/23 12:00 Calcium 9.0 mg/dL (8.5-10.1) 01/07/23 12:00 Corrected Calcium TNP 01/07/23 12:00 Total Bilirubin 0.50 mg/dL (0.2-1.0) 01/07/23 12:00 AST 40 Units/L (15-37) H 01/07/23 12:00 ALT 38 Units/L (12-78) 01/07/23 12:00 Alkaline Phosphatase 77 Units/L (46-116) 01/07/23 12:00 Total Protein 7.5 g/dL (6.4-8.2) 01/07/23 12:00 Albumin 4.1 g/dL (3.4-5.0) 01/07/23 12:00 Globulin 3.4 g/dL (2.5-4.5) 01/07/23 12:00 Albumin/Globulin Ratio 1.2 Ratio (1.1-2.1) 01/07/23 12:00 Amylase 1985 Units/L (25-115) H 01/07/23 12:00 Lipase > 16102 Units/L (73-393) H 01/07/23 12:00 Specimen Type Clean catch urine 01/07/23 11:58 Urine Color Yellow (YELLOW) 01/07/23 11:58 Urine Appearance Clear (CLEAR) 01/07/23 11:58 Urine pH 6.0 (5.0 - 8.0) 01/07/23 11:58 Ur Specific [place] 1.025 (1.000-1.030) 01/07/23 11:58 Urine Protein 1+ (NEGATIVE) 01/07/23 11:58 Urine Glucose (UA) Negative (NEGATIVE) 01/07/23 11:58 Urine Ketones Negative (NEGATIVE) 01/07/23 11:58 Urine Blood Negative (NEGATIVE) 01/07/23 11:58 Urine Nitrite Negative (NEGATIVE) 01/07/23 11:58 Urine Bilirubin Negative (NEGATIVE) 01/07/23 11:58 Urine Urobilinogen Normal (NORMAL) 01/07/23 11:58 Ur Leukocyte Esterase Negative (NEGATIVE) 01/07/23 11:58 Urine RBC None seen /HPF (0-3) 01/07/23 11:58 Urine WBC 0-2 /HPF (0-5) 01/07/23 11:58 Ur Squamous Epith Cells Rare /HPF (NEGATIVE) 01/07/23 11:58 Urine Bacteria Trace /HPF (NEGATIVE) 01/07/23 11:58 Urine Mucus Few /HPF (NEGATIVE) 01/07/23 11:58 Ur Culture Indicated? No/not indicated 01/07/23 11:58 Opioid Opioid Risk Tool Age (Dg box if 16-45): No Total: 0 Total Score Risk Category: Low Risk Copyright: Zane BOWERS predicting aberrant behaviors Discharge Plan Diagnosis Discharge Problem: Acute pancreatitis, Dehydration, Enteritis Discharge Plan Patient Disposition: ADMITTED INPATIENT Condition: Stable Prescriptions: No Action alendronate 35 mg tablet 35 mg PO WEEKLY Label Comments: TAKE 1 TABLET BY MOUTH ONCE A WEEK codeine-guaifenesin 10-100 mg/5 mL liquid 10 ml PO TID PRN Label Comments: TAKE 10 ML BY MOUTH THREE TIMES DAILY; START WITH 5ML FOR FIRST DOSE THEN INCREASE IF NEEDED sertraline [Zoloft] 50 mg tablet 50 mg PO DAILY Label Comments: TAKE 1 TABLET BY MOUTH ONCE DAILY metoprolol tartrate 25 mg tablet 25 mg PO DAILY Label Comments: TAKE 1 TABLET BY MOUTH ONCE DAILY fenofibrate 120 mg tablet 120 mg PO DAILY Label Comments: TAKE 1 TABLET BY MOUTH ONCE DAILY Farxiga 10 mg tablet 10 mg PO DAILY Label Comments: TAKE 1 TABLET BY MOUTH ONCE DAILY ipratropium-albuterol [ipratropium-albuterol] 3 ML solution for nebulization 1 neb NEB TID Qty: 50 1RF Rx Instructions: INHALE ONE TREATMENT THREE TIMES A DAY FOR 7 DAYS, THEN NEEDED budesonide 0.5 mg/2 mL Suspension For Nebulization 1 ea NEB BIDRESP Qty: 50 1RF Rx Instructions: INHALE ONE TREATMENT TWICE A DAY FOR 7 DAYS, THEN NEEDED levofloxacin 500 mg Tablet 500 mg PO DAILY Qty: 7 0RF Rx Instructions: TAKE ONE TABLET DAILY FOR 7 DAYS methylprednisolone [Medrol ([place])] 4 mg Tablets,Dose Pack See Rx Instructions .ROUTE .COMPLEX Qty: 1 0RF Rx Instructions: orally per package directions alprazolam 0.25 mg Tablet 0.25 mg PO BID MDD 2 PRN (Reason: Anxiety) Qty: 60 3RF Rx Instructions: take one tablet twice a day as needed for anxiety Health Concerns: Post Hospitalization: new medications and changes needed to prevent readmission or further decline. Pt educated and given instructions on all concerns. Plan of Treatment: Continue with present treatment and follow up plan. Pt is to keep follow up appointment as instructed and take medications as ordered. Orders to Discharge Patient Discharge Orders: Transfer (Routine); Ordered 01/07/23 Ordered By: Dimitrios Pierre Follow ups/Referrals Follow ups/Referrals: ALLA BOBO [Primary Care Provider] - 3 days
[2023-01-07 11:45] VITALS: BMI 28.5
[2023-01-07] MEDS ORDERED: NS 1,000 ML IV 1,000 ML IV ONE (11:46)
[2023-01-07] MEDS ORDERED: ZOFRAN INJ 4 MG VIAL IVP ONE ×2 (11:47→16:51)
[2023-01-07] MEDS ORDERED: ZOFRAN INJ 4 MG VIAL ONE ×2 (11:50→17:12)
[2023-01-07] MEDS ORDERED: NS 1,000 ML IV 1,000 ML ONE ×2 (11:50→17:45)
[2023-01-07 12:18] LABS: BILIRUBIN,URINE NEGATIVE (NEGATIVE); BLOOD/HEMOGLOBIN,URINE NEGATIVE (NEGATIVE); GLUCOSE, URINE NEGATIVE (NEGATIVE); KETONES,URINE NEGATIVE (NEGATIVE); LEUKOCYTE ESTERASE ,URINE NEGATIVE (NEGATIVE); NITRITES,URINE NEGATIVE (NEGATIVE); PROTEIN,URINE 1+ (NEGATIVE); UROBILINOGEN,URINE NORMAL (NORMAL)
[2023-01-07 12:20] LABS: EOSINOPHILS # (AUTO) 0.5 x10^3/uL (0.0-0.2); HEMOGLOBIN 13.3 g/dL (12.0-16.0); MEAN PLATELET VOLUME 8.9 fL (7.4-11.0); MONOCYTES # (AUTO) 0.7 x10^3/uL (0.3-0.8)
[2023-01-07 12:25] LABS: BASOPHILS # (AUTO) 0.1 X10^3/uL (0.0-0.1); BASOPHILS % (AUTO) 0.4 % (0.2-1.0); EOSINOPHILS % (AUTO) 3.3 % (0.9-2.9); LYMPHOCYTES # (AUTO) 1.2 X10^3/uL (1.3-2.9); LYMPHOCYTES % (AUTO) 8.3 % (21.0-51.0); MEAN CORPUSCULAR HEMOGLOBIN 27.4 pg (27.0-34.0); MEAN CORPUSCULAR HGB CONC 34.1 g/dL (33.0-35.0); MEAN CORPUSCULAR VOLUME 80.4 fL (80.0-100.0); MONOCYTES % (AUTO) 4.4 % (0.0-13.0); NEUTROPHILS # (AUTO) 12.4 x10^3/uL (2.2-4.8); NEUTROPHILS % (AUTO) 83.6 % (42.0-75.0); RED BLOOD COUNT 4.85 X10^6/uL (3.5-5.4); RED CELL DISTRIBUTION WIDTH 14.2 % (11.6-16.5); WHITE BLOOD COUNT 14.9 X10^3/uL (3.6-10.0)
[2023-01-07 12:26] LABS: APPEARANCE,URINE CLEAR (CLEAR); BACTERIA,URINE TRACE /HPF (NEGATIVE); COLOR,URINE YELLOW (YELLOW); RBC,URINE NONE SEEN /HPF (0-3); SQUAMOUS EPITHELIAL CELL,UR RARE /HPF (NEGATIVE)
[2023-01-07 12:31] LABS: ALANINE AMINOTRANSFERASE 38 Units/L (12-78); ALBUMIN 4.1 g/dL (3.4-5.0); ALKALINE PHOSPHATASE 77 Units/L (46-116); ASPARTATE AMINO TRANSFERASE 40 Units/L (15-37); BLOOD UREA NITROGEN 15 mg/dL (7-18); CHLORIDE 103 mmol/L (98-107); COR NA(FOR HYPERGLY) 141 mmol/L (136-145); CREATININE 0.81 mg/dL (0.55-1.02); SODIUM 140 mmol/L (136-145); TOTAL PROTEIN 7.5 g/dL (6.4-8.2); eGFR NON BLACK RACES > 60 (>60)
[2023-01-07 13:01] LABS: LIPASE > 30000 Units/L (73-393)
[2023-01-07 13:21] LABS: AMYLASE 1985 Units/L (25-115)
--- NOTE | 2023-01-07 13:52 | CT ---
HISTORYAbdominal pain with elevated LipaseSTUDYABDOMEN/PELVIS WITH CONCOMPARISONCT abdomen pelvis 12/12/2021. Only the report is available at the time of this dictation (images not available).TECHNIQUEMultiple axial images of the abdomen and pelvis were obtained from the lung bases to the upper thighs after the administration of IV contrast. Dose reduction techniques including Automated Exposure Control (AEC) and adjustment of mA and kV were utilized.FINDINGSThe lung bases are clear. The heart is normal in size. The liver, gallbladder, spleen, pancreas, adrenal glands, and kidneys have a benign appearance. The urinary bladder appears benign. Status post hysterectomy. The appendix is mildly thickened measuring just under 7 mm image 27 series 8. No significant surrounding fat stranding. Negative for bowel obstruction. Non-atherosclerotic normal caliber abdominal aorta. The portal vein is patent. There is minimal fat stranding about a loop of small bowel in the left andrew abdomen image 22 series 8. No pathologic adenopathy. No free air, free fluid or collection. No acute osseous abnormality. Moderate degenerative disc disease at L2-3.IMPRESSIONMildly dilated appendix measuring just under 7 mm without signify surrounding fat stranding. This is indeterminate/equivocal for appendicitis. Consider surgical consultation.Minimal fat stranding about a loop of jejunum in the left andrew abdomen. This can be seen with enteritis.Electronically signed by: Emmett Sky (Jan 07, 2023 13:49:24)
--- NOTE | 2023-01-07 15:40 | EKG ---
Test Reason : PREOP Blood Pressure : */* mmHG Vent. Rate : 71 BPM Atrial Rate : 71 BPM P-R Int : 160 ms QRS Dur : 90 ms QT Int : 412 ms P-R-T Axes : 44 0 30 degrees QTc Int : 447 ms Normal sinus rhythm Normal ECG No previous ECGs available Confirmed by Jose Montenegro ([id number]) on 01/08/2023 8:34:36 AM Referred By: Confirmed By: Jose Montenegro
--- NOTE | 2023-01-07 16:10 | US ---
HISTORYRUQ PAIN, N/V DIARRHEASTUDYGALL BLADDERCOMPARISONCT same dayTECHNIQUEMultiple cameron scale and color flow Doppler images of the right upper quadrant were obtained.FINDINGSThe liver is normal in size and increased in echotexture. No focal identifiable hepatic mass or intrahepatic biliary ductal dilatation.No stones or sludge in the gallbladder. No gallbladder wall thickening or pericholecystic fluid. The sonographic Amador's sign is reported as negative by the editor magazine. The common bile duct is unremarkable measuring 0.4 cm.Limited visualized portions of the pancreas and IVC are unremarkable.The right kidney appears normal in size measuring up to 11.4 cm. No stones or hydronephrosis.IMPRESSIONIncreased hepatic echotexture which may be seen with hepatocellular disease and/or steatosis.Electronically signed by: YARITZA ROSA (Jan 07, 2023 16:09:41)
[2023-01-07] MEDS ORDERED: MORPHINE SULFATE INJ 2 MG INJ IVP ONE (16:51)
[2023-01-07] MEDS ORDERED: MORPHINE SULFATE INJ 2 MG INJ ONE (17:12)
[2023-01-07] MEDS: NS 1,000 ML IV 1,000 ML IV SCH (17:52)
[2023-01-08] MEDS: MORPHINE SULFATE INJ 2 MG INJ IVP PRN ×3 (01:19→17:05)
[2023-01-08] MEDS: ZOFRAN INJ 4 MG VIAL IVP PRN ×2 (01:20→17:05)
[2023-01-08] MEDS: NS 1,000 ML IV 1,000 ML IV SCH ×3 (01:25→21:53)
[2023-01-08 06:36] LABS: BASOPHILS % (AUTO) 0.4 % (0.2-1.0); EOSINOPHILS # (AUTO) 0.4 x10^3/uL (0.0-0.2); EOSINOPHILS % (AUTO) 7.7 % (0.9-2.9); HEMATOCRIT 31.2 % (36.0-47.0); HEMOGLOBIN 10.8 g/dL (12.0-16.0); LYMPHOCYTES # (AUTO) 1.6 X10^3/uL (1.3-2.9); LYMPHOCYTES % (AUTO) 33.1 % (21.0-51.0); MEAN CORPUSCULAR HGB CONC 34.5 g/dL (33.0-35.0); MEAN CORPUSCULAR VOLUME 81.3 fL (80.0-100.0); MEAN PLATELET VOLUME 8.8 fL (7.4-11.0); MONOCYTES # (AUTO) 0.3 x10^3/uL (0.3-0.8); MONOCYTES % (AUTO) 6.5 % (0.0-13.0); NEUTROPHILS # (AUTO) 2.6 x10^3/uL (2.2-4.8); NEUTROPHILS % (AUTO) 52.3 % (42.0-75.0); RED BLOOD COUNT 3.84 X10^6/uL (3.5-5.4); RED CELL DISTRIBUTION WIDTH 14.1 % (11.6-16.5)
[2023-01-08 06:46] LABS: ALANINE AMINOTRANSFERASE 30 Units/L (12-78); ALBUMIN 3.1 g/dL (3.4-5.0); ALKALINE PHOSPHATASE 56 Units/L (46-116); ASPARTATE AMINO TRANSFERASE 25 Units/L (15-37); BLOOD UREA NITROGEN 13 mg/dL (7-18); CALCIUM 8.3 mg/dL (8.5-10.1); CARBON DIOXIDE 28.9 mmol/L (21-32); CHLORIDE 109 mmol/L (98-107); CREATININE 0.65 mg/dL (0.55-1.02); SODIUM 144 mmol/L (136-145); TOTAL PROTEIN 5.9 g/dL (6.4-8.2); eGFR NON BLACK RACES > 60 (>60)
[2023-01-08 07:05] LABS: AMYLASE 889 Units/L (25-115); LIPASE 10109 Units/L (73-393)
[2023-01-08] MEDS: PROTONIX INJ 40 MG VIAL IVP SCH (08:54)
--- NOTE | 2023-01-08 11:26 | DR.PROGNOT ---
HOSPITAL PROGRESS NOTE Progress Note for Day of: Progress Note Date: 01/08/23 Chief Complaint Chief Complaint: moderate abdominal pain 5 out of 10 . feels full . no vomiting . improving pancreatic enzymes . WBC , LFT are normal . afebrile . Past Medical Family Social History Past Med/Fam/Surg Hx: No changes since H&P Allergies: Allergies cefaclor [From Ceclor] Allergy (Verified 12/12/21 04:40) Review Of Systems ROS: No change since H&P Vital Signs Vital Signs: Temperature 98.3 F Pulse Rate [Left Radial] 68 Pulse Rate 66 Respiratory Rate 16 Blood Pressure [Left Arm] 104/53 Blood Pressure 123/69 O2 Sat by Pulse Oximetry 97 Physical Exam Oriented: Normal Respiratory: Normal Cardiovascular: Normal GI: Tenderness: Other (soft , full abdomen with moderate diffuse tenderness more on the Lt side .BS+ ) Speech Pattern: Clear Laboratory and Diagnostics Result Diagrams: 01/08/23 05:37 01/08/23 05:37 Labs: Laboratory WBC 5.0 X10^3/uL (3.6-10.0) D 01/08/23 05:37 RBC 3.84 X10^6/uL (3.5-5.4) 01/08/23 05:37 Hgb 10.8 g/dL (12.0-16.0) L D 01/08/23 05:37 Hct 31.2 % (36.0-47.0) L 01/08/23 05:37 MCV 81.3 fL (80.0-100.0) 01/08/23 05:37 MCH 28.0 pg (27.0-34.0) 01/08/23 05:37 MCHC 34.5 g/dL (33.0-35.0) 01/08/23 05:37 RDW 14.1 % (11.6-16.5) 01/08/23 05:37 Plt Count 164 X10^3/uL (150.0-450.0) 01/08/23 05:37 MPV 8.8 fL (7.4-11.0) 01/08/23 05:37 Neut % (Auto) 52.3 % (42.0-75.0) 01/08/23 05:37 Lymph % (Auto) 33.1 % (21.0-51.0) 01/08/23 05:37 [place] % (Auto) 6.5 % (0.0-13.0) 01/08/23 05:37 Eos % (Auto) 7.7 % (0.9-2.9) H 01/08/23 05:37 Baso % (Auto) 0.4 % (0.2-1.0) 01/08/23 05:37 Neut # (Auto) 2.6 x10^3/uL (2.2-4.8) 01/08/23 05:37 Lymph # (Auto) 1.6 X10^3/uL (1.3-2.9) 01/08/23 05:37 [place] # (Auto) 0.3 x10^3/uL (0.3-0.8) 01/08/23 05:37 Eos # (Auto) 0.4 x10^3/uL (0.0-0.2) H 01/08/23 05:37 Baso # (Auto) 0.0 X10^3/uL (0.0-0.1) 01/08/23 05:37 Absolute Nucleated RBC 0.0 /100WBC 01/08/23 05:37 Sodium 144 mmol/L (136-145) 01/08/23 05:37 Corrected Sodium TNP 01/08/23 05:37 Potassium 3.4 mmol/L (3.5-5.1) L 01/08/23 05:37 Chloride 109 mmol/L (98-107) H 01/08/23 05:37 Carbon Dioxide 28.9 mmol/L (21-32) 01/08/23 05:37 BUN 13 mg/dL (7-18) 01/08/23 05:37 Creatinine 0.65 mg/dL (0.55-1.02) 01/08/23 05:37 Est GFR (MDRD) Af Amer > 60 (>60) 01/08/23 05:37 Est GFR (MDRD) Non-Af > 60 (>60) 01/08/23 05:37 Glucose 85 mg/dL (65-99) 01/08/23 05:37 POC Glucose (mg/dL) 84 mg/dL (65-99) 01/08/23 05:42 Calcium 8.3 mg/dL (8.5-10.1) L 01/08/23 05:37 Corrected Calcium 9.0 mg/dL (8.5-10.1) 01/08/23 05:37 Total Bilirubin 0.30 mg/dL (0.2-1.0) 01/08/23 05:37 AST 25 Units/L (15-37) 01/08/23 05:37 ALT 30 Units/L (12-78) 01/08/23 05:37 Alkaline Phosphatase 56 Units/L (46-116) 01/08/23 05:37 Total Protein 5.9 g/dL (6.4-8.2) L 01/08/23 05:37 Albumin 3.1 g/dL (3.4-5.0) L 01/08/23 05:37 Globulin 2.8 g/dL (2.5-4.5) 01/08/23 05:37 Albumin/Globulin Ratio 1.1 Ratio (1.1-2.1) 01/08/23 05:37 Amylase 889 Units/L (25-115) H 01/08/23 05:37 Lipase 30477 Units/L (73-393) H 01/08/23 05:37 Specimen Type Clean catch urine 01/07/23 11:58 Urine Color Yellow (YELLOW) 01/07/23 11:58 Urine Appearance Clear (CLEAR) 01/07/23 11:58 Urine pH 6.0 (5.0 - 8.0) 01/07/23 11:58 Ur Specific [place] 1.025 (1.000-1.030) 01/07/23 11:58 Urine Protein 1+ (NEGATIVE) 01/07/23 11:58 Urine Glucose (UA) Negative (NEGATIVE) 01/07/23 11:58 Urine Ketones Negative (NEGATIVE) 01/07/23 11:58 Urine Blood Negative (NEGATIVE) 01/07/23 11:58 Urine Nitrite Negative (NEGATIVE) 01/07/23 11:58 Urine Bilirubin Negative (NEGATIVE) 01/07/23 11:58 Urine Urobilinogen Normal (NORMAL) 01/07/23 11:58 Ur Leukocyte Esterase Negative (NEGATIVE) 01/07/23 11:58 Urine RBC None seen /HPF (0-3) 01/07/23 11:58 Urine WBC 0-2 /HPF (0-5) 01/07/23 11:58 Ur Squamous Epith Cells Rare /HPF (NEGATIVE) 01/07/23 11:58 Urine Bacteria Trace /HPF (NEGATIVE) 01/07/23 11:58 Urine Mucus Few /HPF (NEGATIVE) 01/07/23 11:58 Ur Culture Indicated? No/not indicated 01/07/23 11:58 Radiology Reviewed: Yes Assessment and Plan 1: subsiding acute pancreatitis to start clear liquid , same IVF , repeat lab work . Problem Patient Problems: Patient Problems (Updated 01/07/23 @ 17:36 by Dimitrios Pierre) Acute pancreatitis (Acute) K85.90 Dehydration (Acute) E86.0 Enteritis (Acute) K52.9
--- NOTE | 2023-01-08 11:52 | DR.H&P ---
H&P - History & Physical for Day of: H&P Date: 01/07/23 - Chief Complaint Chief Complaint: abdominal pain, n/v/d - History of Present Illness History of Present Illness: PT IS 62 WF, ER ADMISSION WITH CO INTRACTABLE ABDOMINAL PAIN WITH N/V/D FOR NEARLY A WEEK AND GRADUALLY WORSENED. PT DENIES ANY FEVER OR BLOOD IN STOOL. PT HAS PMH OF HTN AND DM, DENIES ANY CAD. PT REPORTS SHE STILL HAS HER GALLBLADDER AND SHE HAS BEEN CO INCREASED GERD SY MPTOMS, NOCTURNAL REFLUX, AND GASTROPARESIS SYMPTOMS. PT WAS ADMITTED FOR TREATMENT AND EVALUATION OF ACUTE ILLNESS. - Past Medical History Past Medical History: Hypertension, Diabetes - Past Surgical History Surgical History: Hysterectomy - Family History Family Medical History: Diabetes Mellitus, [place], Hypertension - Social History Does patient currently use any type of tobacco product: No Have you used tobacco products in the last 12 months: No Type of Tobacco Use: None Does any household member use tobacco: No Alcohol Use: None Drug Use: None - Medications Home Medications: cefaclor [From [facility]] Allergy (Verified 12/12/21 04:40) CONTINUE taking the following medications alendronate 35 mg tablet 35 mg PO DAILY 01/07/23 [History] empagliflozin 10 mg tablet (Jardiance) 10 mg PO DAILY 01/07/23 [History] gemfibrozil 600 mg tablet 600 mg PO BID 01/07/23 [History] - Review of Systems Constitutional: Weakness. denies: Fever Eyes: No Symptoms Reported ENT: No Symptoms Reported Respiratory: No Symptoms Reported Cardiovascular: No Symptoms Reported Gastrointestinal: Nausea, Vomiting, Abdominal Pain, Diarrhea Genitourinary: No Symptoms Reported Musculoskeletal: No Symptoms Reported Skin: No Symptoms Reported Neurological: No Symptoms Reported - Physical Exam Vital Signs: Temperature 98.3 F Pulse Rate [Left Radial] 68 Pulse Rate 66 Respiratory Rate 16 Blood Pressure [Left Arm] 104/53 Blood Pressure 123/69 O2 Sat by Pulse Oximetry 97 Oriented: Normal Eyes: Normal Ear: Normal Nose: Normal Throat: Normal Respiratory: Clear Throughout Cardiovascular: Normal : Normal Auscultation: Bowel Sounds: Increased Palpation: Normal Tenderness: RUQ, LUQ, Epigastric Skin: Decreased Turgur Musculoskeletal: Normal Psychiatric: Anxiety Mood Description: Anxious Affect: Anxious Speech Pattern: Clear, Appropriate - Assessment/Plan (1) Hypertension Qualifiers: Hypertension type: primary hypertension Qualified Code(s): I10 - Essential (primary) hypertension Status: Chronic (2) Acute pancreatitis Status: Acute Plan: NPO, IV HYDRATION CT ABD/PELVIS OBTAINED ON ADMISSION. PAIN CONTROL, PPI THERAPY. BP AND BS MONITORING. VERIFY HOME MEDICATION, REPEAT AM AMYLASE AND LIPASE. GB US OBTAINED WHILE IN ER. DR CORTES CONSULTED (3) Diabetes Qualifiers: Diabetes mellitus type: type 2 Diabetes mellitus correction insulin use: unspecified correction insulin use status Diabetes mellitus complication status: without complication Qualified Code(s): E11.9 - Type 2 diabetes mellitus without complications Status: Chronic (4) Dehydration Status: Acute (5) Enteritis Status: Acute - Allergies Allergies/Adverse Reactions: Allergies Allergy/AdvReac Type Severity Reaction Status Date / Time cefaclor [From [facility]] Allergy Verified 12/12/21 04:40
[2023-01-08] MEDS ORDERED: KLOR-CON PO PRN (13:16)
[2023-01-08] MEDS ORDERED: POTASSIUM CHLORIDE LIQ 20 MEQ UDC PO PRN (13:16)
[2023-01-08] MEDS ORDERED: MICRO K EXTEN CAP 10 MEQ PO PRN (13:16)
[2023-01-08] MEDS ORDERED: K-RIDER 10 MEQ/NS 100 ML 10 MEQ/100 ML BAG IV PRN (13:16)
[2023-01-08] MEDS ORDERED: POTASSIUM CHL 60 MEQ/NS 0.45% 500 ML IV PRN (13:16)
[2023-01-08] MEDS ORDERED: POTASSIUM CHL 40 MEQ/NS 0.45% 500 ML IV PRN (13:16)
[2023-01-08] MEDS: K-DUR TAB 20 MEQ PO PRN (14:49)
[2023-01-08] MEDS: MAGNESIUM SULFATE 1 GRAM/100 mL PREMIX 1 G/100 ML BAG IV PRN ×2 (14:50→16:06)
[2023-01-08] MEDS ORDERED: TYLENOL 325 MG TAB PO PRN (21:45)
[2023-01-09] MEDS: ZOFRAN INJ 4 MG VIAL IVP PRN ×2 (00:35→17:13)
[2023-01-09] MEDS: NS 1,000 ML IV 1,000 ML IV SCH ×5 (03:13→22:05)
[2023-01-09] MEDS: MORPHINE SULFATE INJ 2 MG INJ IVP PRN ×2 (04:57→17:13)
[2023-01-09 06:16] LABS: BASOPHILS % (AUTO) 0.3 % (0.2-1.0); EOSINOPHILS # (AUTO) 0.4 x10^3/uL (0.0-0.2); EOSINOPHILS % (AUTO) 6.8 % (0.9-2.9); HEMATOCRIT 30.7 % (36.0-47.0); HEMOGLOBIN 10.8 g/dL (12.0-16.0); LYMPHOCYTES # (AUTO) 1.2 X10^3/uL (1.3-2.9); LYMPHOCYTES % (AUTO) 21.3 % (21.0-51.0); MEAN CORPUSCULAR HEMOGLOBIN 28.3 pg (27.0-34.0); MEAN CORPUSCULAR HGB CONC 35.3 g/dL (33.0-35.0); MEAN CORPUSCULAR VOLUME 80.1 fL (80.0-100.0); MEAN PLATELET VOLUME 9.1 fL (7.4-11.0); MONOCYTES # (AUTO) 0.3 x10^3/uL (0.3-0.8); MONOCYTES % (AUTO) 4.7 % (0.0-13.0); NEUTROPHILS # (AUTO) 3.6 x10^3/uL (2.2-4.8); NEUTROPHILS % (AUTO) 66.9 % (42.0-75.0); RED BLOOD COUNT 3.83 X10^6/uL (3.5-5.4); WHITE BLOOD COUNT 5.4 X10^3/uL (3.6-10.0)
[2023-01-09 06:23] LABS: ALANINE AMINOTRANSFERASE 24 Units/L (12-78); ALBUMIN 3.4 g/dL (3.4-5.0); ALKALINE PHOSPHATASE 58 Units/L (46-116); ASPARTATE AMINO TRANSFERASE 21 Units/L (15-37); BLOOD UREA NITROGEN 5 mg/dL (7-18); CALCIUM 8.4 mg/dL (8.5-10.1); CARBON DIOXIDE 28.1 mmol/L (21-32); CHLORIDE 104 mmol/L (98-107); CREATININE 0.58 mg/dL (0.55-1.02); MAGNESIUM 2.2 mg/dL (2.0-2.9); SODIUM 140 mmol/L (136-145); TOTAL PROTEIN 6.2 g/dL (6.4-8.2); eGFR NON BLACK RACES > 60 (>60)
[2023-01-09 07:38] LABS: AMYLASE 360 Units/L (25-115)
[2023-01-09 07:55] LABS: LIPASE 3444 Units/L (73-393)
[2023-01-09] MEDS: PROTONIX INJ 40 MG VIAL IVP SCH (08:47)
[2023-01-09] MEDS: K-DUR TAB 20 MEQ PO PRN (08:47)
[2023-01-09] MEDS ORDERED: LEVSIN/MAALOX/LIDOC VISC PO PRN (12:41)
[2023-01-10] MEDS: NS 1,000 ML IV 1,000 ML IV SCH ×2 (03:02→15:34)
[2023-01-10 06:18] LABS: EOSINOPHILS # (AUTO) 0.4 x10^3/uL (0.0-0.2); EOSINOPHILS % (AUTO) 9.2 % (0.9-2.9); HEMATOCRIT 30.5 % (36.0-47.0); HEMOGLOBIN 10.7 g/dL (12.0-16.0); LYMPHOCYTES # (AUTO) 1.5 X10^3/uL (1.3-2.9); LYMPHOCYTES % (AUTO) 38.7 % (21.0-51.0); MEAN CORPUSCULAR HGB CONC 35.1 g/dL (33.0-35.0); MEAN CORPUSCULAR VOLUME 79.9 fL (80.0-100.0); MEAN PLATELET VOLUME 8.7 fL (7.4-11.0); MONOCYTES # (AUTO) 0.2 x10^3/uL (0.3-0.8); MONOCYTES % (AUTO) 5.9 % (0.0-13.0); NEUTROPHILS # (AUTO) 1.8 x10^3/uL (2.2-4.8); NEUTROPHILS % (AUTO) 45.2 % (42.0-75.0); RED BLOOD COUNT 3.82 X10^6/uL (3.5-5.4); RED CELL DISTRIBUTION WIDTH 14.4 % (11.6-16.5); WHITE BLOOD COUNT 3.9 X10^3/uL (3.6-10.0)
[2023-01-10 07:48] LABS: AMYLASE 338 Units/L (25-115)
[2023-01-10 08:15] LABS: LIPASE 4455 Units/L (73-393)
[2023-01-10 08:35] LABS: ALANINE AMINOTRANSFERASE 24 Units/L (12-78); ALBUMIN 3.1 g/dL (3.4-5.0); ALKALINE PHOSPHATASE 54 Units/L (46-116); ASPARTATE AMINO TRANSFERASE 24 Units/L (15-37); BLOOD UREA NITROGEN 4 mg/dL (7-18); CALCIUM 8.3 mg/dL (8.5-10.1); CARBON DIOXIDE 26.1 mmol/L (21-32); CHLORIDE 108 mmol/L (98-107); CREATININE 0.59 mg/dL (0.55-1.02); SODIUM 141 mmol/L (136-145); TOTAL PROTEIN 5.8 g/dL (6.4-8.2); eGFR NON BLACK RACES > 60 (>60)
[2023-01-10] MEDS ORDERED: PEPCID 20 MG VIAL IVP ONE (08:51)
[2023-01-10] MEDS: PROTONIX INJ 40 MG VIAL IVP SCH ×2 (08:54→20:56)
[2023-01-10] MEDS: ZOFRAN INJ 4 MG VIAL IVP PRN ×2 (08:54→20:59)
[2023-01-10 09:24] LABS: CHOL/HDL RATIO 4.3 (0.0-5.0)
--- NOTE | 2023-01-10 18:02 | PCM.PROG ---
Progress Note - Progress Note for Day of Date of Exam: 01/10/23 - Subjective Subjective: She is a 62-year-old white female who was admitted with acute pancreatitis. The patient's amylase and lipase were slightly higher this am. Dr. Lomeli is consulting and after evaluation yesterday, he started her on clear liquids. On Tuesday, she had a small amount of applesauce and had profuse vomiting episode. The patient reports she has not had any vomiting since then, but continues to complain of some light burping and belching. - Past Medical Family Social History Past Med/Fam/Surg Hx: No changes since H&P Allergies: Allergies cefaclor [From Ceclor] Allergy (Verified 12/12/21 04:40) - Review of Systems ROS: No change since H&P - Vital Signs and I&O's Vital Signs: Temperature 97.2 F Pulse Rate [Left Radial] 72 Pulse Rate 66 Respiratory Rate 18 Blood Pressure [Left Arm] 145/79 Blood Pressure 123/69 O2 Sat by Pulse Oximetry 97 Intake and Output: Intake & Output 01/08/23 01/09/23 01/10/23 01/11/23 11:59 11:59 11:59 11:59 Intake Total 1386 / 1386 4390 / 4390 3840 / 3840 240 / 240 Balance 1386 / 1386 4390 / 4390 3840 / 3840 240 / 240 - Physical Exam Oriented: Normal Eyes: Normal Ear: Normal Nose: Normal Throat: Normal Respiratory: Normal Cardiovascular: Normal : Normal Auscultation: Bowel Sounds: Increased Tenderness: RUQ, LUQ, Epigastric Skin: Decreased Turgur Musculoskeletal: Normal Psychiatric: Anxiety Mood Description: Anxious Affect: Anxious Speech Pattern: Clear - Laboratory and Diagnostics Result Diagrams: 01/10/23 05:46 01/10/23 05:46 Labs: Laboratory WBC 3.9 X10^3/uL (3.6-10.0) 01/10/23 05:46 RBC 3.82 X10^6/uL (3.5-5.4) 01/10/23 05:46 Hgb 10.7 g/dL (12.0-16.0) L 01/10/23 05:46 Hct 30.5 % (36.0-47.0) L 01/10/23 05:46 MCV 79.9 fL (80.0-100.0) L 01/10/23 05:46 MCH 28.0 pg (27.0-34.0) 01/10/23 05:46 MCHC 35.1 g/dL (33.0-35.0) H 01/10/23 05:46 RDW 14.4 % (11.6-16.5) 01/10/23 05:46 Plt Count 160 X10^3/uL (150.0-450.0) 01/10/23 05:46 MPV 8.7 fL (7.4-11.0) 01/10/23 05:46 Neut % (Auto) 45.2 % (42.0-75.0) 01/10/23 05:46 Lymph % (Auto) 38.7 % (21.0-51.0) 01/10/23 05:46 [place] % (Auto) 5.9 % (0.0-13.0) 01/10/23 05:46 Eos % (Auto) 9.2 % (0.9-2.9) H 01/10/23 05:46 Baso % (Auto) 1.0 % (0.2-1.0) 01/10/23 05:46 Neut # (Auto) 1.8 x10^3/uL (2.2-4.8) L 01/10/23 05:46 Lymph # (Auto) 1.5 X10^3/uL (1.3-2.9) 01/10/23 05:46 [place] # (Auto) 0.2 x10^3/uL (0.3-0.8) L 01/10/23 05:46 Eos # (Auto) 0.4 x10^3/uL (0.0-0.2) H 01/10/23 05:46 Baso # (Auto) 0.0 X10^3/uL (0.0-0.1) 01/10/23 05:46 Absolute Nucleated RBC 0.1 /100WBC 01/10/23 05:46 Sodium 141 mmol/L (136-145) 01/10/23 05:46 Corrected Sodium TNP 01/10/23 05:46 Potassium 3.5 mmol/L (3.5-5.1) 01/10/23 05:46 Chloride 108 mmol/L (98-107) H 01/10/23 05:46 Carbon Dioxide 26.1 mmol/L (21-32) 01/10/23 05:46 BUN 4 mg/dL (7-18) L 01/10/23 05:46 Creatinine 0.59 mg/dL (0.55-1.02) 01/10/23 05:46 Est GFR (MDRD) Af Amer > 60 (>60) 01/10/23 05:46 Est GFR (MDRD) Non-Af > 60 (>60) 01/10/23 05:46 Glucose 94 mg/dL (65-99) 01/10/23 05:46 POC Glucose (mg/dL) 95 mg/dL (65-99) 01/10/23 11:08 Calcium 8.3 mg/dL (8.5-10.1) L 01/10/23 05:46 Corrected Calcium 9.0 mg/dL (8.5-10.1) 01/10/23 05:46 Magnesium 2.2 mg/dL (2.0-2.9) 01/09/23 05:29 Total Bilirubin 0.20 mg/dL (0.2-1.0) 01/10/23 05:46 AST 24 Units/L (15-37) 01/10/23 05:46 ALT 24 Units/L (12-78) 01/10/23 05:46 Alkaline Phosphatase 54 Units/L (46-116) 01/10/23 05:46 Total Protein 5.8 g/dL (6.4-8.2) L 01/10/23 05:46 Albumin 3.1 g/dL (3.4-5.0) L 01/10/23 05:46 Globulin 2.7 g/dL (2.5-4.5) 01/10/23 05:46 Albumin/Globulin Ratio 1.1 Ratio (1.1-2.1) 01/10/23 05:46 Triglycerides 111 mg/dL (0-150) 01/10/23 05:46 Cholesterol 149 mg/dL (0-200) 01/10/23 05:46 LDL Cholesterol, Calc 92 mg/dL (0-100) 01/10/23 05:46 HDL Cholesterol 35 mg/dL (40-60) L 01/10/23 05:46 Cholesterol/HDL Ratio 4.3 (0.0-5.0) 01/10/23 05:46 Amylase 338 Units/L (25-115) H 01/10/23 05:46 Lipase 4455 Units/L (73-393) H 01/10/23 05:46 Specimen Type Clean catch urine 01/07/23 11:58 Urine Color Yellow (YELLOW) 01/07/23 11:58 Urine Appearance Clear (CLEAR) 01/07/23 11:58 Urine pH 6.0 (5.0 - 8.0) 01/07/23 11:58 Ur Specific [place] 1.025 (1.000-1.030) 01/07/23 11:58 Urine Protein 1+ (NEGATIVE) 01/07/23 11:58 Urine Glucose (UA) Negative (NEGATIVE) 01/07/23 11:58 Urine Ketones Negative (NEGATIVE) 01/07/23 11:58 Urine Blood Negative (NEGATIVE) 01/07/23 11:58 Urine Nitrite Negative (NEGATIVE) 01/07/23 11:58 Urine Bilirubin Negative (NEGATIVE) 01/07/23 11:58 Urine Urobilinogen Normal (NORMAL) 01/07/23 11:58 Ur Leukocyte Esterase Negative (NEGATIVE) 01/07/23 11:58 Urine RBC None seen /HPF (0-3) 01/07/23 11:58 Urine WBC 0-2 /HPF (0-5) 01/07/23 11:58 Ur Squamous Epith Cells Rare /HPF (NEGATIVE) 01/07/23 11:58 Urine Bacteria Trace /HPF (NEGATIVE) 01/07/23 11:58 Urine Mucus Few /HPF (NEGATIVE) 01/07/23 11:58 Ur Culture Indicated? No/not indicated 01/07/23 11:58 - Plan (1) Acute pancreatitis Status: Acute Plan: NPO, IV HYDRATION CT ABD/PELVIS OBTAINED ON ADMISSION. PAIN CONTROL, PPI THERAPY. BP AND BS MONITORING. VERIFY HOME MEDICATION, REPEAT AM AMYLASE AND LIPASE. GB US OBTAINED WHILE IN ER. DR CORTES CONSULTED (2) Hypertension Status: Chronic Qualifiers: Hypertension type: primary hypertension Qualified Code(s): I10 - Essential (primary) hypertension (3) Diabetes Status: Chronic Qualifiers: Diabetes mellitus type: type 2 Diabetes mellitus residential insulin use: unspecified supervisor intermediates insulin use status Diabetes mellitus complication status: without complication Qualified Code(s): E11.9 - Type 2 diabetes mellitus without complications (4) Dehydration Status: Acute (5) Enteritis Status: Acute
[2023-01-10] MEDS: MORPHINE SULFATE INJ 2 MG INJ IVP PRN (20:59)
[2023-01-11 06:14] LABS: BASOPHILS % (AUTO) 0.7 % (0.2-1.0); EOSINOPHILS # (AUTO) 0.5 x10^3/uL (0.0-0.2); EOSINOPHILS % (AUTO) 11.7 % (0.9-2.9); HEMATOCRIT 32.7 % (36.0-47.0); HEMOGLOBIN 11.5 g/dL (12.0-16.0); LYMPHOCYTES # (AUTO) 1.8 X10^3/uL (1.3-2.9); LYMPHOCYTES % (AUTO) 39.2 % (21.0-51.0); MEAN CORPUSCULAR HEMOGLOBIN 28.2 pg (27.0-34.0); MEAN CORPUSCULAR HGB CONC 35.2 g/dL (33.0-35.0); MONOCYTES # (AUTO) 0.2 x10^3/uL (0.3-0.8); MONOCYTES % (AUTO) 5.2 % (0.0-13.0); NEUTROPHILS # (AUTO) 1.9 x10^3/uL (2.2-4.8); NEUTROPHILS % (AUTO) 43.2 % (42.0-75.0); RED BLOOD COUNT 4.09 X10^6/uL (3.5-5.4); RED CELL DISTRIBUTION WIDTH 14.3 % (11.6-16.5); WHITE BLOOD COUNT 4.5 X10^3/uL (3.6-10.0)
[2023-01-11 06:41] LABS: ALANINE AMINOTRANSFERASE 26 Units/L (12-78); ALBUMIN 3.5 g/dL (3.4-5.0); ALKALINE PHOSPHATASE 58 Units/L (46-116); ASPARTATE AMINO TRANSFERASE 27 Units/L (15-37); BLOOD UREA NITROGEN 5 mg/dL (7-18); CALCIUM 8.7 mg/dL (8.5-10.1); CARBON DIOXIDE 30.4 mmol/L (21-32); CHLORIDE 104 mmol/L (98-107); CREATININE 0.67 mg/dL (0.55-1.02); SODIUM 140 mmol/L (136-145); TOTAL PROTEIN 6.7 g/dL (6.4-8.2); eGFR NON BLACK RACES > 60 (>60)
[2023-01-11 08:38] LABS: AMYLASE 350 Units/L (25-115)
--- NOTE | 2023-01-11 08:38 | DR.PROGNOT ---
HOSPITAL PROGRESS NOTE Progress Note for Day of: Progress Note Date: 01/11/23 Chief Complaint Chief Complaint: mild upper abdominal pain 4 out of 10 . feels full . no vomiting . improving pancreatic enzymes . WBC , LFT are normal . afebrile . Past Medical Family Social History Past Med/Fam/Surg Hx: No changes since H&P Allergies: Allergies cefaclor [From Ceclor] Allergy (Verified 12/12/21 04:40) Vital Signs Vital Signs: Temperature 98.4 F Pulse Rate [Left Radial] 64 Pulse Rate 66 Respiratory Rate 20 Blood Pressure [Left Arm] 146/66 Blood Pressure 123/69 O2 Sat by Pulse Oximetry 97 Physical Exam Oriented: Normal Eyes: Normal Ear: Normal Nose: Normal Throat: Normal Respiratory: Normal Cardiovascular: Normal : Normal GI:Auscultation: Increased GI:Palpation: Normal GI: Tenderness: RUQ, LUQ and Epigastric (mild tendrness . BS+) Skin: Decreased Turgur Musculoskeletal: Normal Psychiatric: Anxiety Mood Description: Anxious Affect: Anxious Speech Pattern: Clear Laboratory and Diagnostics Result Diagrams: 01/11/23 05:22 01/11/23 05:22 Labs: Laboratory WBC 4.5 X10^3/uL (3.6-10.0) 01/11/23 05:22 RBC 4.09 X10^6/uL (3.5-5.4) 01/11/23 05:22 Hgb 11.5 g/dL (12.0-16.0) L 01/11/23 05:22 Hct 32.7 % (36.0-47.0) L 01/11/23 05:22 MCV 80.0 fL (80.0-100.0) 01/11/23 05:22 MCH 28.2 pg (27.0-34.0) 01/11/23 05:22 MCHC 35.2 g/dL (33.0-35.0) H 01/11/23 05:22 RDW 14.3 % (11.6-16.5) 01/11/23 05:22 Plt Count 154 X10^3/uL (150.0-450.0) 01/11/23 05:22 MPV 9.0 fL (7.4-11.0) 01/11/23 05:22 Neut % (Auto) 43.2 % (42.0-75.0) 01/11/23 05:22 Lymph % (Auto) 39.2 % (21.0-51.0) 01/11/23 05:22 [place] % (Auto) 5.2 % (0.0-13.0) 01/11/23 05:22 Eos % (Auto) 11.7 % (0.9-2.9) H 01/11/23 05:22 Baso % (Auto) 0.7 % (0.2-1.0) 01/11/23 05:22 Neut # (Auto) 1.9 x10^3/uL (2.2-4.8) L 01/11/23 05:22 Lymph # (Auto) 1.8 X10^3/uL (1.3-2.9) 01/11/23 05:22 [place] # (Auto) 0.2 x10^3/uL (0.3-0.8) L 01/11/23 05:22 Eos # (Auto) 0.5 x10^3/uL (0.0-0.2) H 01/11/23 05:22 Baso # (Auto) 0.0 X10^3/uL (0.0-0.1) 01/11/23 05:22 Absolute Nucleated RBC 0.1 /100WBC 01/11/23 05:22 Sodium 140 mmol/L (136-145) 01/11/23 05:22 Corrected Sodium TNP 01/11/23 05:22 Potassium 3.2 mmol/L (3.5-5.1) L 01/11/23 05:22 Chloride 104 mmol/L (98-107) 01/11/23 05:22 Carbon Dioxide 30.4 mmol/L (21-32) 01/11/23 05:22 BUN 5 mg/dL (7-18) L 01/11/23 05:22 Creatinine 0.67 mg/dL (0.55-1.02) 01/11/23 05:22 Est GFR (MDRD) Af Amer > 60 (>60) 01/11/23 05:22 Est GFR (MDRD) Non-Af > 60 (>60) 01/11/23 05:22 Glucose 86 mg/dL (65-99) 01/11/23 05:22 POC Glucose (mg/dL) 100 mg/dL (65-99) H 01/11/23 05:58 Calcium 8.7 mg/dL (8.5-10.1) 01/11/23 05:22 Corrected Calcium TNP 01/11/23 05:22 Magnesium 2.2 mg/dL (2.0-2.9) 01/09/23 05:29 Total Bilirubin 0.20 mg/dL (0.2-1.0) 01/11/23 05:22 AST 27 Units/L (15-37) 01/11/23 05:22 ALT 26 Units/L (12-78) 01/11/23 05:22 Alkaline Phosphatase 58 Units/L (46-116) 01/11/23 05:22 Total Protein 6.7 g/dL (6.4-8.2) 01/11/23 05:22 Albumin 3.5 g/dL (3.4-5.0) 01/11/23 05:22 Globulin 3.2 g/dL (2.5-4.5) 01/11/23 05:22 Albumin/Globulin Ratio 1.1 Ratio (1.1-2.1) 01/11/23 05:22 Triglycerides 111 mg/dL (0-150) 01/10/23 05:46 Cholesterol 149 mg/dL (0-200) 01/10/23 05:46 LDL Cholesterol, Calc 92 mg/dL (0-100) 01/10/23 05:46 HDL Cholesterol 35 mg/dL (40-60) L 01/10/23 05:46 Cholesterol/HDL Ratio 4.3 (0.0-5.0) 01/10/23 05:46 Amylase 338 Units/L (25-115) H 01/10/23 05:46 Lipase 4455 Units/L (73-393) H 01/10/23 05:46 Specimen Type Clean catch urine 01/07/23 11:58 Urine Color Yellow (YELLOW) 01/07/23 11:58 Urine Appearance Clear (CLEAR) 01/07/23 11:58 Urine pH 6.0 (5.0 - 8.0) 01/07/23 11:58 Ur Specific [place] 1.025 (1.000-1.030) 01/07/23 11:58 Urine Protein 1+ (NEGATIVE) 01/07/23 11:58 Urine Glucose (UA) Negative (NEGATIVE) 01/07/23 11:58 Urine Ketones Negative (NEGATIVE) 01/07/23 11:58 Urine Blood Negative (NEGATIVE) 01/07/23 11:58 Urine Nitrite Negative (NEGATIVE) 01/07/23 11:58 Urine Bilirubin Negative (NEGATIVE) 01/07/23 11:58 Urine Urobilinogen Normal (NORMAL) 01/07/23 11:58 Ur Leukocyte Esterase Negative (NEGATIVE) 01/07/23 11:58 Urine RBC None seen /HPF (0-3) 01/07/23 11:58 Urine WBC 0-2 /HPF (0-5) 01/07/23 11:58 Ur Squamous Epith Cells Rare /HPF (NEGATIVE) 01/07/23 11:58 Urine Bacteria Trace /HPF (NEGATIVE) 01/07/23 11:58 Urine Mucus Few /HPF (NEGATIVE) 01/07/23 11:58 Ur Culture Indicated? No/not indicated 01/07/23 11:58 Assessment and Plan 1: subsiding acute pancreatitis on full clear liquid , same IVF , repeat lab work . Problem Patient Problems: Patient Problems (Updated 01/08/23 @ 11:52 by KEVIN EUGENE) Hypertension (Chronic) I10 Diabetes (Chronic) E11.9 Acute pancreatitis (Acute) K85.90 Dehydration (Acute) E86.0 Enteritis (Acute) K52.9
[2023-01-11 09:05] LABS: LIPASE 4636 Units/L (73-393)
[2023-01-11] MEDS: PROTONIX INJ 40 MG VIAL IVP SCH (09:20)
--- NOTE | 2023-01-11 10:17 | MRI ---
MRCPClinical indication: PancreatitisProcedure: Multiplanar multi sequence MRI of the abdomen were obtained without the administration of intravenous contrast according to standard departmental protocol. MRCP sequences also obtained.Comparisons:Ultrasound January 07, [address] January 07, 2023Findings:Mild hepatic steatosis. No significant ascites. Liver and spleen are normal in size and morphology. No definite focal lesions. Gallbladder sludge is present. No evidence of gallbladder stone. No filling defects within the common bile duct. No ductal dilatation Pancreas demonstrates normal T1 signal. Adrenal glands are grossly normal Kidneys demonstrate normal cortical medullary differentiation. No hydronephrosis. No suspicious lymph nodes.Impression:1.No evidence of acute pancreatitis.2. Gallbladder sludge without evidence of gallstone or common bile duct stone.3. Mild hepatic steatosis.Electronically signed by: CARMINE WATSON (Jan 11, 2023 10:16:23)
[2023-01-11 14:31] VITALS: BP 143/85
[2023-01-11] MEDS: NS 1,000 ML IV 1,000 ML IV SCH (14:43)
== END 2023-01-11 16:00 | disposition home or self-care (01) | DRG 440 ==
LOC: ER 11:20 → MED/SURG 11:20
PROVIDERS: ADMIT Internal Medicine; ATTEND Internal Medicine
DX: E11.65 Type 2 diabetes mellitus with hyperglycemia; K52.89 Other specified noninfective gastroenteritis and colitis; R10.84 Generalized abdominal pain; I10 Essential (primary) hypertension; K85.80 Other acute pancreatitis without necrosis or infection; R74.8 Abnormal levels of other serum enzymes; R74.01 Elevation of levels of liver transaminase levels; E86.0 Dehydration